=== PATIENT | female | born 1965 | race American Indian/Alaskan Native ===

== ENCOUNTER 2016-10-23 14:01 | Emergency (ER) | payer SELFPAY ==
[2016-10-23 15:42] LABS: Eosinophils % (Auto) 1.9 % (0.0-4.3); Hematocrit 41.4 % (30.3-42.9); Mean Corpuscular HGB Conc 31 % (30-34); Mean Corpuscular Hemoglobin 26 pg (28-32); Mean Corpuscular Volume 83 fl (79-97); Platelet Count 302 K/mm3 (140-440); Red Blood Count 4.98 M/mm3 (3.65-5.03); Red Cell Distribution Width 13.2 % (13.2-15.2)
[2016-10-23 15:53] LABS: B-Hydroxybutyrate 1.3 mg/dL (0.2-2.8); BUN/Creatinine Ratio 11.11; Blood Urea Nitrogen 10 mg/dL (7-17); Calcium 9.3 mg/dL (8.4-10.2); Carbon Dioxide 24 mmol/L (22-30); Glucose 369 mg/dL (65-100)
[2016-10-23 15:54] LABS: Anion Gap 21 mmol/L; Chloride 94.5 mmol/L (98-107); Sodium 135 mmol/L (137-145)
[2016-10-23] MEDS ORDERED: NACL 0.9% 1000 ML IV ONE (16:10)
[2016-10-23] MEDS ORDERED: MORPHINE IV ONE (16:16)
[2016-10-23] MEDS ORDERED: ZOFRAN IV ONE (16:16)
--- NOTE | 2016-10-23 16:17 | Emergency Department Report ---
ED Chest Pain HPI - General Chief Complaint: Hyperglycemia Stated Complaint: CHEST PAIN Source: patient Mode of arrival: Stretcher Limitations: No Limitations - History of Present Illness Initial Comments: Patient is a 51 year old female who presents to the ED for left sided chest pain of about 10/10 at around 11 45 AM today while she was at work. Patient states pain was sharp, shooting type of pain which is also radiating to the left back. Patient denies any MA or PE. Relates has a hx of hypertension and diabetes. States she is currently on lisinopril 5 mg once daily, novolog 20 units and levemir 40 units nightly along with statins. Patient denies any headaches, sob, abdominal pain, emesis or diarrhea. States pain is about 8/10 s /p asprin. MD Complaint: chest pain Onset/Timin -: hour(s) Onset: during rest Pain Location: left chest Pain Radiation: back Severity scale (0 -10): 8 Quality: aching, dull, pressure Consistency: constant Improves With: nothing Worsens With: nothing re: denies: nausea, vomting, diaphoresis, dyspnea, sense of impending doom Other Symptoms: denies: cough, fever, syncope, palpitations Treatments Prior to Arrival: aspirin - Related Data Home Medications Medication Instructions Recorded Confirmed Last Taken Insulin Lispro [HumaLOG VIAL] 0 units SQ AC 10/23/16 10/23/16 Unknown Lisinopril [Zestril] 5 mg PO QDAY 10/23/16 10/23/16 Unknown Previous Rx's Medication Instructions Recorded Last Taken Type Insulin Detemir [Levemir] 100 unit SQ QHS #1 vial 10/23/16 Unknown Rx Allergies Allergy/AdvReac Type Severity Reaction Status Date / Time No Known Allergies Allergy Unverified 06/11/16 13:03 CLAUDIA score - Claudia Score Age > 65: (0) No Aspirin use within the Past 7 Days: (0) No 3 or more CAD Risk Factors: (1) Yes 2 or more Angina events in past 24 hrs: (0) No Known CAD with more than 50% Stenosis: (0) No Elevated Cardiac Markers: (0) No ST Deviation Greater than 0.5mm: (0) No (1) CLAUDIA Score: 1 ED Review of Systems ROS: Stated complaint: CHEST PAIN Other details as noted in HPI Constitutional: denies: chills, fever Eyes: denies: eye pain, eye discharge, vision change Respiratory: denies: cough, shortness of breath, wheezing Cardiovascular: as per HPI, chest pain. denies: palpitations, orthopnea, edema , syncope Gastrointestinal: denies: abdominal pain, nausea, diarrhea Neurological: denies: headache, weakness, paresthesias Psychiatric: denies: anxiety, depression ED Past Medical Hx - Past Medical History Hx Hypertension: Yes Hx Diabetes: Yes Hx Asthma: Yes - Surgical History Hx Cholecystectomy: Yes Additional Surgical History: PDA REPAIR. X3. HERNIA REPAIR. ECTOPIC . HYSTERECTOMY - Social History Smoking Status: Never Smoker - Medications Home Medications: Home Medications Medication Instructions Recorded Confirmed Last Taken Type Insulin Detemir [Levemir] 100 unit SQ QHS #1 vial 10/23/16 Unknown Rx Insulin Lispro [HumaLOG VIAL] 0 units SQ AC 10/23/16 10/23/16 Unknown History Lisinopril [Zestril] 5 mg PO QDAY 10/23/16 10/23/16 Unknown History ED Physical Exam - General Limitations: No Limitations General appearance: alert, in no apparent distress - Head Head exam: Present: atraumatic, normocephalic - Eye Eye exam: Present: normal appearance - Respiratory Respiratory exam: Present: normal lung sounds bilaterally. Absent: respiratory distress, wheezes, rales, rhonchi, stridor - Cardiovascular Cardiovascular Exam: Present: regular rate, normal rhythm. Absent: systolic murmur, diastolic murmur, rubs, gallop - GI/Abdominal GI/Abdominal exam: Present: soft, normal bowel sounds - Neurological Exam Neurological exam: Present: alert, oriented X3 - Psychiatric Psychiatric exam: Present: normal affect, normal mood ED Course Vital Signs 10/23/16 10/23/16 10/23/16 14:49 14:58 15:00 Pulse Rate 103 H Respiratory 16 18 23 Rate Blood Pressure 126/81 O2 Sat by Pulse 100 Oximetry 10/23/16 17:29 Pulse Rate Respiratory 18 Rate Blood Pressure O2 Sat by Pulse Oximetry ED Medical Decision Making - Lab Data Result diagrams: 10/23/16 15:16 10/23/16 15:16 - EKG Data When compared to previous EKG there are: no significant change Interpretation: no acute changes, other (sinus tachy otherwise normal ekg ) - Medical Decision Making 4:23 PM Patient is resting comfortably. Blood work significant for Venous PH of 7.29. Serum glucose of 369. Awaiting lactatic acid, chest xray and troponin for now. EKG does not reveal STEMI. IV fluids and 7 units of IV regular insulin ordered at this time. 7:56 PM Patient is resting comfortably. States no more chest pain. Troponin negative x 2, LActate came back 2.5 but patient states feeling much better. Spoke with Dr. Figueroa and Dr. Fernandez who advised to change patient's insulin and she should be able to be discharged at this time. No chest pain, abdominal pain , headaches or sob at discharge. Advised follow up with electroplating worker and PCP in 2-3 days and advised to return to ED for worsening symptoms. Advised patient to keep taking Levemir 40 units at night time and add Levemir 20 units in the AM as per Dr. Fernandez. - Differential Diagnosis Hyperglycemia, uncontrolled serum glucose, chest pain, atypical chest pain Critical care attestation.: If time is entered above; I have spent that time in minutes in the direct care of this critically ill patient, excluding procedure time. ED Disposition Clinical Impression: Atypical chest pain Hyperglycemia due to type 2 diabetes mellitus Qualifiers: Diabetes mellitus joint terminal attack controller insulin use: with joint terminal attack controller use Qualified Code(s): E11.65 - Type 2 diabetes mellitus with hyperglycemia; Z79.4 - residential (current ) use of insulin Disposition: DISCHARGED TO HOME OR SELFCARE Is pt being admited?: No Does the pt Need Aspirin: No Condition: Stable Instructions: Diabetes Mellitus Type 2 in Adults (ED), Chest Pain (ED) Additional Instructions: Advised patient to add Levemir 20 units in the AM. So patient is to use Novolog 20 units in the AM, 25 units at noon and 25 units in the evening Levemir 40 units at night and 20 units in the AM 12 hours apart. Prescriptions: Insulin Detemir [Levemir] 100 unit SQ QHS #1 vial Referrals: PRIMARY CARE, [Primary Care Provider] - 3-5 Days CLINT HARRISON MD [Staff Physician] - 3-5 Days Time of Disposition: 20:01
[2016-10-23 16:38] LABS: Bacteria,Urine 1+ /HPF (Negative); Bilirubin,Urine NEG (Negative); Blood,Urine SM (Negative); Ketones,Urine NEG (Negative); Leukocyte Esterase,Urine LG (Negative); Nitrite,Urine NEG (Negative); Protein,Urine <15 mg/dL mg/dL (Negative); Urobilinogen,Urine < 2.0 mg/dL (<2.0)
[2016-10-23 17:27] LABS: Creatine Kinase 40 units/L (30-135)
[2016-10-23 17:31] LABS: Creatine Kinase MB < 1.0 ng/mL (0.0-4.0)
[2016-10-23 20:35] VITALS: BP 162/98
--- NOTE | 2016-10-24 09:57 | XRay Report ---
ROUTINE CHEST, TWO VIEWS: HISTORY: chest pain. The trachea, heart, mediastinal contour, lung stinson and bony thorax are unremarkable. IMPRESSION: Unremarkable chest x-ray.
== END 2016-10-23 20:34 | disposition home or self-care (01) ==
LOC: ED 14:01
DX: R07.89 Other chest pain (principal); E11.65 Type 2 diabetes mellitus with hyperglycemia; J45.909 Unspecified asthma, uncomplicated; I10 Essential (primary) hypertension; Z79.4 Long term (current) use of insulin
CPT/HCPCS: 36415; 71020; 80048; 81001; 82010; 82140; 82550; 82553; 82805; 82962; 84484; 85025; 93005; 93010; 96361; 96374; 96375; 99284; J2270; J2405; J7030; J1815

== ENCOUNTER 2017-02-13 21:32 | Emergency (ER) | payer SELFPAY ==
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
[2017-02-14] MEDS ORDERED: NORCO 5/325 PO ONE (00:43)
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
[2017-02-14 03:36] VITALS: BP 136/87
== END 2017-02-14 03:40 | disposition home or self-care (01) ==
LOC: ED 21:32
DX: M25.552 Pain in left hip (principal); I10 Essential (primary) hypertension; E11.9 Type 2 diabetes mellitus without complications; J45.909 Unspecified asthma, uncomplicated; Z79.4 Long term (current) use of insulin; V09.9XXA Pedestrian injured in unspecified transport accident, initial encounter; Y93.89 Activity, other specified; Y99.8 Other external cause status; Y92.480 Sidewalk as the place of occurrence of the external cause
CPT/HCPCS: 70450; 71020; 72100; 72125

== ENCOUNTER 2019-02-13 19:34 | Inpatient (IN) | payer MEDICARE, OTHER ==
--- NOTE | 2019-02-13 20:55 | Emergency Department Report ---
ED Altered Mental Status HPI - General Chief Complaint: Altered Mental Status Stated Complaint: ALTERED MENTAL STATUS Time Seen by Provider: 02/13/19 20:32 Source: patient, family, EMS Mode of arrival: Stretcher Limitations: Altered Mental Status - History of Present Illness Initial Comments: 53 yo F with hx diabetes, brain tumor, depression, presents to ED with altered mental status. Son arrived at her home and found patient unresponsive. He states he was unable to arouse her for approx 5 minutes. EMS was called, accucheck 418. Patient transported to ED. Daughter states she was concerned about pt's mental status for a few days now. States when she spoke to her over the phone yesterday and the day before, pt had repetitive questioning, which is unlike her. Also states speech sounded slurred at that time also. Pt last seen normal 3 days ago. Currently, pt complaining of headache, and also back pain which is chronic. Pt states her back hurts all of the time. Does not recall falling. Denies taking any medications. Denies any alcohol use. Past hx of drug abuse, but pt currently denies. MD Complaint: altered mental status -: days(s) (2) Severity: moderate Consistency of Symptoms: getting worse Context: diabetes Associated Symptoms: headaches. denies: chest pain, cough, fever/chills, nausea/vomiting, shortness of breath, diarrhea - Related Data Home Medications Medication Instructions Recorded Confirmed Last Taken Insulin Lispro [HumaLOG VIAL] 0 units SQ AC 10/23/16 10/23/16 Unknown Lisinopril [Zestril] 5 mg PO QDAY 10/23/16 10/23/16 Unknown Previous Rx's Medication Instructions Recorded Last Taken Type Insulin Detemir [Levemir] 100 unit SQ QHS #1 vial 10/23/16 Unknown Rx Cyclobenzaprine [Flexeril] 10 mg PO Q8H PRN #12 tablet 02/14/17 Unknown Rx Ibuprofen [Motrin] 600 mg PO Q8H PRN #30 tablet 02/14/17 Unknown Rx Allergies Allergy/AdvReac Type Severity Reaction Status Date / Time lisinopril Allergy Itching Verified 02/14/19 01:03 oxycodone Allergy Itching Verified 02/14/19 01:03 ED Review of Systems ROS: Stated complaint: ALTERED MENTAL STATUS Other details as noted in HPI Comment: All other systems reviewed and negative Constitutional: denies: chills, fever Respiratory: denies: shortness of breath Cardiovascular: denies: chest pain Gastrointestinal: denies: abdominal pain, nausea, vomiting, diarrhea Neurological: headache, confusion ED Past Medical Hx - Past Medical History Previous Medical History?: Yes Hx Hypertension: Yes Hx Diabetes: Yes Hx Asthma: Yes - Surgical History Past Surgical History?: Yes Hx Cholecystectomy: Yes Additional Surgical History: PDA REPAIR. X3. HERNIA REPAIR. ECTOPIC . HYSTERECTOMY - Social History Smoking Status: Never Smoker Substance Use Type: None - Medications Home Medications: Home Medications Medication Instructions Recorded Confirmed Last Taken Type Insulin Detemir [Levemir] 100 unit SQ QHS #1 vial 10/23/16 Unknown Rx Insulin Lispro [HumaLOG VIAL] 0 units SQ AC 10/23/16 10/23/16 Unknown History Lisinopril [Zestril] 5 mg PO QDAY 10/23/16 10/23/16 Unknown History Cyclobenzaprine [Flexeril] 10 mg PO Q8H PRN #12 tablet 02/14/17 Unknown Rx Ibuprofen [Motrin] 600 mg PO Q8H PRN #30 tablet 02/14/17 Unknown Rx ED Physical Exam - General Limitations: Altered Mental Status General appearance: lethargic - Head Head exam: Present: atraumatic, normocephalic - Eye Eye exam: Present: EOMI. Absent: PERRL, scleral icterus, conjunctival injection, periorbital swelling Pupils: Present: irregular (right lens irregular), unequal, other (left pupil > right pupil) - ENT ENT exam: Present: mucous membranes dry - Neck Neck exam: Present: normal inspection - Respiratory Respiratory exam: Present: normal lung sounds bilaterally. Absent: respiratory distress - Cardiovascular Cardiovascular Exam: Present: normal rhythm, tachycardia - GI/Abdominal GI/Abdominal exam: Present: soft, tenderness (mild diffuse tenderness). Absent: distended - Extremities Exam Extremities exam: Present: normal inspection. Absent: tenderness - Neurological Exam Neurological exam: Present: alert, altered, motor sensory deficit (drift present in BUE, drift present in right leg). Absent: oriented X3 (states it is the year 2018) - Psychiatric Psychiatric exam: Present: normal affect, normal mood - Skin Skin exam: Present: warm, dry, intact, normal color - Assessment Assessment Interval: Baseline - Level of Consciousness 1a. Level of Consciousness: arousable/minor stimuli - LOC Questions 1b. LOC Questions: answers 1 question correctly - LOC Command 1c. LOC Commands: performs tasks correctly - Best Gaze 2. Best Gaze: partial gaze palsy - Visual 3. Visual: no visual loss - Facial Palsy 4. Facial Palsy: normal symmetrical movement - Motor Arm 5a. Motor Arm Left: drift 5b. Motor Arm Right: drift - Motor Leg 6a. Motor Leg Left: drift 6b. Motor Leg Right: no drift - Limb Ataxia 7. Limb Ataxia: absent - Sensory 8. Sensory: normal - Best Language 9. Best Language: no aphasia - Dysarthria 10. Dysarthria: normal - Extinction and Inattention 11. Extinction/Inattention: no abnormality - Scoring Total Score: 6 Stroke Severity: Moderate Stroke ED Course Vital Signs 02/13/19 02/13/19 02/13/19 20:00 20:09 20:16 Temperature 98.1 F Pulse Rate 100 H 104 H 106 H Respiratory 9 L 12 17 Rate Blood Pressure 165/100 165/100 143/96 Blood Pressure 165/100 [Left] O2 Sat by Pulse 97 99 98 Oximetry 02/13/19 02/13/19 02/13/19 20:30 20:46 21:01 Temperature Pulse Rate 102 H 107 H 103 H Respiratory 12 16 10 L Rate Blood Pressure 165/100 150/81 123/77 Blood Pressure [Left] O2 Sat by Pulse 96 99 95 Oximetry 02/13/19 02/13/19 02/13/19 21:15 21:30 21:45 Temperature Pulse Rate 97 H 97 H 94 H Respiratory 9 L 10 L 9 L Rate Blood Pressure 104/69 121/77 103/67 Blood Pressure [Left] O2 Sat by Pulse 94 93 92 Oximetry 02/13/19 02/13/19 02/13/19 22:00 22:30 22:45 Temperature Pulse Rate 91 H 89 88 Respiratory 8 L 8 L 7 L Rate Blood Pressure 104/67 104/69 104/67 Blood Pressure [Left] O2 Sat by Pulse 96 98 98 Oximetry 02/13/19 02/13/19 02/14/19 23:00 23:30 00:00 Temperature Pulse Rate 96 H 94 H 90 Respiratory 14 8 L 8 L Rate Blood Pressure 97/74 122/77 108/64 Blood Pressure [Left] O2 Sat by Pulse 99 96 94 Oximetry 02/14/19 00:30 Temperature Pulse Rate 91 H Respiratory 14 Rate Blood Pressure 146/97 Blood Pressure [Left] O2 Sat by Pulse 98 Oximetry - Reevaluation(s) Reevaluation #1: 02/13/19 21:40 Narcan 0.4 mg given. No change in mental status. Reevaluation #2: 02/13/19 22:00 Narcan 2 mg given. No change in mental status. - Lab Data Result diagrams: 02/14/19 04:11 02/13/19 21:04 Lab Results 02/13/19 02/13/19 02/13/19 Range/Units 21:04 21:04 21:04 WBC 8.0 (4.5-11.0) K/mm3 RBC 4.46 (3.65-5.03) M/mm3 Hgb 11.7 (10.1-14.3) gm/dl Hct 35.7 (30.3-42.9) % MCV 80 (79-97) fl MCH 26 L (28-32) pg MCHC 33 (30-34) % RDW 14.0 (13.2-15.2) % Plt Count 274 (140-440) K/mm3 Lymph % (Auto) 26.4 (13.4-35.0) % [place] % (Auto) 9.7 H (0.0-7.3) % Eos % (Auto) 6.4 H (0.0-4.3) % Baso % (Auto) 0.6 (0.0-1.8) % Lymph # 2.1 (1.2-5.4) K/mm3 [place] # 0.8 (0.0-0.8) K/mm3 Eos # 0.5 H (0.0-0.4) K/mm3 Baso # 0.0 (0.0-0.1) K/mm3 Seg Neutrophils % 56.9 (40.0-70.0) % Seg Neutrophils # 4.5 (1.8-7.7) K/mm3 PT 12.4 (12.2-14.9) Sec. INR 0.95 (0.87-1.13) APTT 32.0 (24.2-36.6) Sec. POC ABG pH (7.35-7.45) POC ABG pCO2 (35-45) POC ABG pO2 (80-105) POC ABG HCO3 (22-26 mml/L) POC ABG Total CO2 (23-27mmol/L) POC ABG O2 Sat POC ABG Base Excess ((-2) - (+3)mmol/L) FiO2 % Sodium 137 (137-145) mmol/L Potassium 4.4 (3.6-5.0) mmol/L Chloride 100.2 (98-107) mmol/L Carbon Dioxide 23 (22-30) mmol/L Anion Gap 18 mmol/L BUN 24 H (7-17) mg/dL Creatinine 1.1 (0.7-1.2) mg/dL Estimated GFR > 60 ml/min BUN/Creatinine Ratio 22 % Glucose 335 H (65-100) mg/dL Calcium 9.0 (8.4-10.2) mg/dL Total Bilirubin (0.1-1.2) mg/dL Direct Bilirubin (0-0.2) mg/dL Indirect Bilirubin mg/dL AST (5-40) units/L ALT (7-56) units/L Alkaline Phosphatase (35-129) units/L Ammonia (25-60) umol/L Troponin T (0.00-0.029) ng/mL Total Protein (6.3-8.2) g/dL Albumin (3.9-5) g/dL Albumin/Globulin Ratio % Lipase (13-60) units/L Urine Color (Yellow) Urine Turbidity (Clear) Urine pH (5.0-7.0) Ur Specific [place] (1.003-1.030) Urine Protein (Negative) mg/dL Urine Glucose (UA) (Negative) mg/dL Urine Ketones (Negative) mg/dL Urine Blood (Negative) Urine Nitrite (Negative) Urine Bilirubin (Negative) Urine Urobilinogen (<2.0) mg/dL Ur Leukocyte Esterase (Negative) Urine WBC (Auto) (0.0-6.0) /HPF Urine RBC (Auto) (0.0-6.0) /HPF U Epithel Cells (Auto) (0-13.0) /HPF Urine Mucus /HPF Salicylates (2.8-20.0) mg/dL Urine Opiates Screen Urine Methadone Screen Acetaminophen (10.0-30.0) ug/mL Ur Barbiturates Screen Ur Phencyclidine Scrn Ur Amphetamines Screen U Benzodiazepines Scrn Urine Cocaine Screen U Marijuana (THC) Screen Drugs of Abuse Note Plasma/Serum Alcohol (0-0.07) % 02/13/19 02/13/19 02/13/19 Range/Units 21:04 21:04 21:04 WBC (4.5-11.0) K/mm3 RBC (3.65-5.03) M/mm3 Hgb (10.1-14.3) gm/dl Hct (30.3-42.9) % MCV (79-97) fl MCH (28-32) pg MCHC (30-34) % RDW (13.2-15.2) % Plt Count (140-440) K/mm3 Lymph % (Auto) (13.4-35.0) % [place] % (Auto) (0.0-7.3) % Eos % (Auto) (0.0-4.3) % Baso % (Auto) (0.0-1.8) % Lymph # (1.2-5.4) K/mm3 [place] # (0.0-0.8) K/mm3 Eos # (0.0-0.4) K/mm3 Baso # (0.0-0.1) K/mm3 Seg Neutrophils % (40.0-70.0) % Seg Neutrophils # (1.8-7.7) K/mm3 PT (12.2-14.9) Sec. INR (0.87-1.13) APTT (24.2-36.6) Sec. POC ABG pH (7.35-7.45) POC ABG pCO2 (35-45) POC ABG pO2 (80-105) POC ABG HCO3 (22-26 mml/L) POC ABG Total CO2 (23-27mmol/L) POC ABG O2 Sat POC ABG Base Excess ((-2) - (+3)mmol/L) FiO2 % Sodium (137-145) mmol/L Potassium (3.6-5.0) mmol/L Chloride (98-107) mmol/L Carbon Dioxide (22-30) mmol/L Anion Gap mmol/L BUN (7-17) mg/dL Creatinine (0.7-1.2) mg/dL Estimated GFR ml/min BUN/Creatinine Ratio % Glucose (65-100) mg/dL Calcium (8.4-10.2) mg/dL Total Bilirubin < 0.20 (0.1-1.2) mg/dL Direct Bilirubin < 0.2 (0-0.2) mg/dL Indirect Bilirubin 0.0 mg/dL AST 12 (5-40) units/L ALT 11 (7-56) units/L Alkaline Phosphatase 128 (35-129) units/L Ammonia (25-60) umol/L Troponin T < 0.010 (0.00-0.029) ng/mL Total Protein 7.8 (6.3-8.2) g/dL Albumin 3.6 L (3.9-5) g/dL Albumin/Globulin Ratio 0.9 % Lipase 16 (13-60) units/L Urine Color (Yellow) Urine Turbidity (Clear) Urine pH (5.0-7.0) Ur Specific [place] (1.003-1.030) Urine Protein (Negative) mg/dL Urine Glucose (UA) (Negative) mg/dL Urine Ketones (Negative) mg/dL Urine Blood (Negative) Urine Nitrite (Negative) Urine Bilirubin (Negative) Urine Urobilinogen (<2.0) mg/dL Ur Leukocyte Esterase (Negative) Urine WBC (Auto) (0.0-6.0) /HPF Urine RBC (Auto) (0.0-6.0) /HPF U Epithel Cells (Auto) (0-13.0) /HPF Urine Mucus /HPF Salicylates < 0.3 L (2.8-20.0) mg/dL Urine Opiates Screen Urine Methadone Screen Acetaminophen < 5.0 L (10.0-30.0) ug/mL Ur Barbiturates Screen Ur Phencyclidine Scrn Ur Amphetamines Screen U Benzodiazepines Scrn Urine Cocaine Screen U Marijuana (THC) Screen Drugs of Abuse Note Plasma/Serum Alcohol (0-0.07) % 02/13/19 02/13/19 02/13/19 Range/Units 21:04 21:30 21:30 WBC (4.5-11.0) K/mm3 RBC (3.65-5.03) M/mm3 Hgb (10.1-14.3) gm/dl Hct (30.3-42.9) % MCV (79-97) fl MCH (28-32) pg MCHC (30-34) % RDW (13.2-15.2) % Plt Count (140-440) K/mm3 Lymph % (Auto) (13.4-35.0) % [place] % (Auto) (0.0-7.3) % Eos % (Auto) (0.0-4.3) % Baso % (Auto) (0.0-1.8) % Lymph # (1.2-5.4) K/mm3 [place] # (0.0-0.8) K/mm3 Eos # (0.0-0.4) K/mm3 Baso # (0.0-0.1) K/mm3 Seg Neutrophils % (40.0-70.0) % Seg Neutrophils # (1.8-7.7) K/mm3 PT (12.2-14.9) Sec. INR (0.87-1.13) APTT (24.2-36.6) Sec. POC ABG pH (7.35-7.45) POC ABG pCO2 (35-45) POC ABG pO2 (80-105) POC ABG HCO3 (22-26 mml/L) POC ABG Total CO2 (23-27mmol/L) POC ABG O2 Sat POC ABG Base Excess ((-2) - (+3)mmol/L) FiO2 % Sodium (137-145) mmol/L Potassium (3.6-5.0) mmol/L Chloride (98-107) mmol/L Carbon Dioxide (22-30) mmol/L Anion Gap mmol/L BUN (7-17) mg/dL Creatinine (0.7-1.2) mg/dL Estimated GFR ml/min BUN/Creatinine Ratio % Glucose (65-100) mg/dL Calcium (8.4-10.2) mg/dL Total Bilirubin (0.1-1.2) mg/dL Direct Bilirubin (0-0.2) mg/dL Indirect Bilirubin mg/dL AST (5-40) units/L ALT (7-56) units/L Alkaline Phosphatase (35-129) units/L Ammonia (25-60) umol/L Troponin T (0.00-0.029) ng/mL Total Protein (6.3-8.2) g/dL Albumin (3.9-5) g/dL Albumin/Globulin Ratio % Lipase (13-60) units/L Urine Color Yellow (Yellow) Urine Turbidity Clear (Clear) Urine pH 5.0 (5.0-7.0) Ur Specific [place] 1.012 (1.003-1.030) Urine Protein <15 mg/dl (Negative) mg/dL Urine Glucose (UA) >=500 (Negative) mg/dL Urine Ketones Neg (Negative) mg/dL Urine Blood Neg (Negative) Urine Nitrite Neg (Negative) Urine Bilirubin Neg (Negative) Urine Urobilinogen < 2.0 (<2.0) mg/dL Ur Leukocyte Esterase Neg (Negative) Urine WBC (Auto) < 1.0 (0.0-6.0) /HPF Urine RBC (Auto) < 1.0 (0.0-6.0) /HPF U Epithel Cells (Auto) 1.0 (0-13.0) /HPF Urine Mucus Few /HPF Salicylates (2.8-20.0) mg/dL Urine Opiates Screen Presumptive negative Urine Methadone Screen Presumptive negative Acetaminophen (10.0-30.0) ug/mL Ur Barbiturates Screen Presumptive negative Ur Phencyclidine Scrn Presumptive negative Ur Amphetamines Screen Presumptive negative U Benzodiazepines Scrn Presumptive negative Urine Cocaine Screen Presumptive negative U Marijuana (THC) Screen Presumptive negative Drugs of Abuse Note Disclamer Plasma/Serum Alcohol < 0.01 (0-0.07) % 02/13/19 02/13/19 Range/Units 23:16 23:16 WBC (4.5-11.0) K/mm3 RBC (3.65-5.03) M/mm3 Hgb (10.1-14.3) gm/dl Hct (30.3-42.9) % MCV (79-97) fl MCH (28-32) pg MCHC (30-34) % RDW (13.2-15.2) % Plt Count (140-440) K/mm3 Lymph % (Auto) (13.4-35.0) % [place] % (Auto) (0.0-7.3) % Eos % (Auto) (0.0-4.3) % Baso % (Auto) (0.0-1.8) % Lymph # (1.2-5.4) K/mm3 [place] # (0.0-0.8) K/mm3 Eos # (0.0-0.4) K/mm3 Baso # (0.0-0.1) K/mm3 Seg Neutrophils % (40.0-70.0) % Seg Neutrophils # (1.8-7.7) K/mm3 PT (12.2-14.9) Sec. INR (0.87-1.13) APTT (24.2-36.6) Sec. POC ABG pH 7.350 (7.35-7.45) POC ABG pCO2 48.8 H (35-45) POC ABG pO2 84 (80-105) POC ABG HCO3 26.9 (22-26 mml/L) POC ABG Total CO2 28 (23-27mmol/L) POC ABG O2 Sat 96 POC ABG Base Excess 1 ((-2) - (+3)mmol/L) FiO2 21 % Sodium (137-145) mmol/L Potassium (3.6-5.0) mmol/L Chloride (98-107) mmol/L Carbon Dioxide (22-30) mmol/L Anion Gap mmol/L BUN (7-17) mg/dL Creatinine (0.7-1.2) mg/dL Estimated GFR ml/min BUN/Creatinine Ratio % Glucose (65-100) mg/dL Calcium (8.4-10.2) mg/dL Total Bilirubin (0.1-1.2) mg/dL Direct Bilirubin (0-0.2) mg/dL Indirect Bilirubin mg/dL AST (5-40) units/L ALT (7-56) units/L Alkaline Phosphatase (35-129) units/L Ammonia 36.0 (25-60) umol/L Troponin T (0.00-0.029) ng/mL Total Protein (6.3-8.2) g/dL Albumin (3.9-5) g/dL Albumin/Globulin Ratio % Lipase (13-60) units/L Urine Color (Yellow) Urine Turbidity (Clear) Urine pH (5.0-7.0) Ur Specific [place] (1.003-1.030) Urine Protein (Negative) mg/dL Urine Glucose (UA) (Negative) mg/dL Urine Ketones (Negative) mg/dL Urine Blood (Negative) Urine Nitrite (Negative) Urine Bilirubin (Negative) Urine Urobilinogen (<2.0) mg/dL Ur Leukocyte Esterase (Negative) Urine WBC (Auto) (0.0-6.0) /HPF Urine RBC (Auto) (0.0-6.0) /HPF U Epithel Cells (Auto) (0-13.0) /HPF Urine Mucus /HPF Salicylates (2.8-20.0) mg/dL Urine Opiates Screen Urine Methadone Screen Acetaminophen (10.0-30.0) ug/mL Ur Barbiturates Screen Ur Phencyclidine Scrn Ur Amphetamines Screen U Benzodiazepines Scrn Urine Cocaine Screen U Marijuana (THC) Screen Drugs of Abuse Note Plasma/Serum Alcohol (0-0.07) % - EKG Data -: EKG Interpreted by Me EKG shows normal: sinus rhythm, axis, intervals, QRS complexes, ST-T waves Interpretation: no acute changes - Radiology Data Radiology results: report reviewed, image reviewed - Medical Decision Making 53-year-old female who is encephalopathic. No reason for encephalopathy found in workup. CT head is negative. Labs are unremarkable including normal CO2 on ABG, ammonia level, WBCs. Patient has elevated glucose into the 300s, however no sign of acidosis or DKA. Patient was given Narcan initially upon arrival for possible opiate does, however no change with Narcan was administered. Drug screen is negative, EtOH level is negative. Patient lethargic, however will awaken to painful stimuli and is somewhat conversational although there is rep etitive questioning, and at times patient's speech is not clear. CVA is still possible, however no obvious acute infarct seen on CT scan. She will require MRI upon admission. Patient is outside the window for TPA as her last known well time was 3 days ago. Will admit to hospitalist, Dr Mcclain, for further management. - Differential Diagnosis intentional overdose, accidental overdose, CVA, intoxication, CO2 narcosis Critical care attestation.: If time is entered above; I have spent that time in minutes in the direct care of this critically ill patient, excluding procedure time. ED Disposition Clinical Impression: Encephalopathy, Hyperglycemia Disposition: OP ADMIT IP TO THIS HOSP Is pt being admited?: Yes Condition: Stable
[2019-02-13 21:20] LABS: Basophils % (Auto) 0.6 % (0.0-1.8); Eosinophils # (Auto) 0.5 K/mm3 (0.0-0.4); Eosinophils % (Auto) 6.4 % (0.0-4.3); Hematocrit 35.7 % (30.3-42.9); Hemoglobin 11.7 gm/dl (10.1-14.3); Lymphocytes # (Auto) 2.1 K/mm3 (1.2-5.4); Lymphocytes % (Auto) 26.4 % (13.4-35.0); Mean Corpuscular HGB Conc 33 % (30-34); Mean Corpuscular Volume 80 fl (79-97); Monocytes # (Auto) 0.8 K/mm3 (0.0-0.8); Monocytes % (Auto) 9.7 % (0.0-7.3); Platelet Count 274 K/mm3 (140-440); Red Blood Count 4.46 M/mm3 (3.65-5.03)
[2019-02-13 21:31] LABS: BUN/Creatinine Ratio 22; Blood Urea Nitrogen 24 mg/dL (7-17); Hemolysis Index 14; INR 0.95 (0.87-1.13)
[2019-02-13] MEDS ORDERED: NARCAN 0.4 MG/1 ML IV ONE (21:31)
[2019-02-13] MEDS ORDERED: NARCAN 0.4 MG/1 ML ONE (21:33)
[2019-02-13 21:34] LABS: Alanine Aminotransferase 11 units/L (7-56); Albumin 3.6 g/dL (3.9-5)
[2019-02-13 21:38] LABS: Bilirubin,Direct < 0.2 mg/dL (0-0.2)
--- NOTE | 2019-02-13 21:39 | XRay Report ---
PROCEDURE: XR CHEST 1V AP TECHNIQUE: Chest radiograph single view. HISTORY: AMS COMPARISONS: CXR 02/14/2017 . FINDINGS: Heart: Normal. Mediastinum/Vessels: Normal. Lungs/Pleural space: Normal. Bony thorax: No acute osseous abnormality. Life support devices: None. IMPRESSION: No acute cardiopulmonary abnormality. No change This document is electronically signed by Ysabel Barrett MD., February 13 2019 09:37:58 PM ET
--- NOTE | 2019-02-13 21:48 | Cat Scan Report ---
PROCEDURE: CT HEAD/BRAIN WO CON TECHNIQUE: Computerized tomography of the head was performed without contrast material. CT DOSE LENGTH PRODUCT: 920.5 mGycm HISTORY: ams, unequal pupils COMPARISONS: None . FINDINGS: Unenhanced CT of the brain was performed and compared to the prior examination of February 14, 2017. These images demonstrate no acute intracranial hemorrhage, extra-axial fluid collection, midline shif t or mass effect. The ventricles and basal cisterns are not effaced. No acute infarct is seen. MRI may be considered if patient has persistent symptomatology. The mastoid air cells and middle ears appear clear. There is no evidence of acute sinusitis. There is a normal left lens. The right lens is not identified. The patient may be status post right i ntraocular lens replacement and correlation with ophthalmologic history is advised. IMPRESSION: No acute intracranial hemorrhage All CT scans at this location are performed using dose modulation techniques as appropriate to a perf ormed exam including the following: automated exposure control, adjustment of the mA and/or kV accord ing to patient size (this includes techniques or standardized protocols for targeted exams where dose is matched to indication/reason for exam, i.e.extremities or head; use of imaging [id number] This document is electronically signed by Salvador Dee MD., February 13 2019 09:46:34 PM ET
[2019-02-13] MEDS ORDERED: NARCAN 2 MG/2 ML ONE (21:59)
[2019-02-13] MEDS ORDERED: NARCAN 2 MG/2 ML IV ONE (22:00)
[2019-02-13 22:15] LABS: Bilirubin,Urine NEG (Negative); Blood,Urine NEG (Negative); Color,Urine Yellow (Yellow); Mucus,Urine FEW /HPF; Protein,Urine <15 mg/dL mg/dL (Negative); RBC,Urine < 1.0 /HPF (0.0-6.0); Urobilinogen,Urine < 2.0 mg/dL (<2.0); WBC,Urine < 1.0 /HPF (0.0-6.0)
[2019-02-13 22:36] LABS: Amphetamine Screen,Urine PRESUMPTIVE NEGATIVE; Benzodiazepines Screen,Urine PRESUMPTIVE NEGATIVE; Cannabinoid Screen,Urine PRESUMPTIVE NEGATIVE; Cocaine Screen,Urine PRESUMPTIVE NEGATIVE; Methadone Screen,Urine PRESUMPTIVE NEGATIVE; Opiate Screen,Urine PRESUMPTIVE NEGATIVE
[2019-02-13] MEDS ORDERED: NACL 0.9% 1000 ML 1,000 ML IV ONE (22:59)
[2019-02-14] MEDS ORDERED: D50W (25GM) Syringe IV PRN (00:46)
[2019-02-14] MEDS ORDERED: SODIUM CHLORIDE FLUSH SYRINGE 10 ML IV PRN (00:46)
[2019-02-14] MEDS ORDERED: SODIUM CHLORIDE FLUSH SYRINGE 10 ML INJ PRN (00:57)
--- NOTE | 2019-02-14 01:10 | History and Physical Report ---
History of Present Illness Date of examination: 02/14/19 History of present illness: 53-year-old lady with a history of hypertension, diabetes complictated by Neuropathy comes emergency room for evaluation of altered mental status. Patient was given Narcan in the emergency room with no improvement in her mental status. She is lethargic, answers some questions. They she's in the hospital because her family could not wake her up, she is not sure if she took any extra Lyrica or nortriptyline. Emergency room physician stated that the daughter stated that she had slurred speech 2 days prior to this. Review of systems unobtainable PAST MEDICAL HISTORY: hypertension, diabetes complictated by Neuropathy PAST SURGICAL HISTORY: Unknown SOCIAL HISTORY: Denies alcohol, drugs, tobacco FAMILY HISTORY: Hypertension Medications and Allergies Allergies Allergy/AdvReac Type Severity Reaction Status Date / Time lisinopril Allergy Itching Verified 02/14/19 01:03 oxycodone Allergy Itching Verified 02/14/19 01:03 Home Medications Medication Instructions Recorded Confirmed Last Taken Type Insulin Lispro [HumaLOG VIAL] 0 units SQ AC 10/23/16 02/14/19 Unknown History Cyclobenzaprine [Flexeril 10 MG 10 mg PO Q8H PRN #12 tablet 02/14/17 02/14/19 Unknown Rx TAB] Ibuprofen [Motrin 600 MG tab] 600 mg PO Q8H PRN #30 tablet 02/14/17 02/14/19 Unknown Rx Losartan 25 mg PO QDAY 02/14/19 02/14/19 Unknown History Rosuvastatin (Nf) 40 mg PO QDAY 02/14/19 02/14/19 Unknown History Xarelto 20 mg PO QAC 02/14/19 02/14/19 Unknown History metFORMIN 1,000 mg PO QAC 02/14/19 02/14/19 Unknown History Insulin Detemir [Levemir VIAL] 10 unit SQ QHS #1 vial 02/17/19 02/14/19 Unknown Rx Active Meds: Active Medications Acetaminophen (Tylenol) 650 mg PO Q4H PRN PRN Reason: Pain MILD(1-3)/Fever >100.5/[place] Aspirin (Aspirin) 325 mg PO QDAY [facility]AI Dextrose (D50w (25gm) Syringe) 50 ml IV PRN PRN PRN Reason: Hypoglycemia Enoxaparin Sodium (Lovenox) 40 mg SUB-Q QDAY [facility] Insulin Human Lispro (Humalog) 0 unit SUB-Q Q6HR [facility]; Protocol Ondansetron HCl (Zofran) 4 mg IV Q8H PRN PRN Reason: Nausea And Vomiting Pravastatin Sodium (Pravachol) 20 mg PO QHS [facility]AI Sodium Chloride (Sodium Chloride Flush Syringe 10 Ml) 10 ml IV BID [facility]AI Sodium Chloride (Sodium Chloride Flush Syringe 10 Ml) 10 ml IV PRN PRN PRN Reason: LINE FLUSH Sodium Chloride (Sodium Chloride Flush Syringe 10 Ml) 10 ml INJ PRN PRN PRN Reason: LINE FLUSH Exam - Physical Exam Narrative exam: General Apperance: The patient lying in bed, breathing comfortable HEENT: Normocephalic, atraumatic. Pupils equally round and reactive to light, EOMI, no sclericterus or JVD or thyromegaly or nodule. , no carotid bruit, mucous membranes moist, no exudate or erythema Heart: S1-S2, regular is rhythm Lungs: Clear to auscultation bilaterally, breathing comfortable Abdomen: Positive bowel sounds, soft, nontender, nondistended, no organomegaly Extremities: No edema cyanosis clubbing Skin: no rash, nodule, warm and dry Neuro: lethargic but arousable, speech is fluent, all 4 extremities, rest of the neuro exam is difficult to assess - Constitutional Vitals: Temp Pulse Resp BP Pulse Ox 98.1 F 88 7 L 104/67 98 02/13/19 20:09 02/13/19 22:45 02/13/19 22:45 02/13/19 22:45 02/13/19 22:45 Results - Labs CBC & Chem 7: 02/14/19 04:11 02/16/19 04:26 Labs: Abnormal lab results 02/13/19 02/13/19 02/13/19 Range/Units 21:04 21:04 21:04 MCH 26 L (28-32) pg [place] % (Auto) 9.7 H (0.0-7.3) % Eos % (Auto) 6.4 H (0.0-4.3) % Eos # 0.5 H (0.0-0.4) K/mm3 POC ABG pCO2 (35-45) BUN 24 H (7-17) mg/dL Glucose 335 H (65-100) mg/dL Albumin 3.6 L (3.9-5) g/dL Salicylates (2.8-20.0) mg/dL Acetaminophen (10.0-30.0) ug/mL 02/13/19 02/13/19 02/13/19 Range/Units 21:04 21:04 23:16 MCH (28-32) pg [place] % (Auto) (0.0-7.3) % Eos % (Auto) (0.0-4.3) % Eos # (0.0-0.4) K/mm3 POC ABG pCO2 48.8 H (35-45) BUN (7-17) mg/dL Glucose (65-100) mg/dL Albumin (3.9-5) g/dL Salicylates < 0.3 L (2.8-20.0) mg/dL Acetaminophen < 5.0 L (10.0-30.0) ug/mL - Imaging and Cardiology Chest x-ray: report reviewed CT Scan - head: report reviewed Assessment and Plan Assessment Acute encephalopathy, probably drug-induced, r/o CVA Hypertension Diabetes complicated by neuropathy Plan Admit to medicine Obtain MRI of the head and neck, echo Do neuro checks, swallow screen Start aspirin, statin Utility Technician neurology, PT, OT IV hydralazine as needed for blood pressure control Check fingersticks and initiate insulin sliding scale DVT prophylaxis
[2019-02-14] MEDS: HumaLOG SUB-Q SCH ×2 (01:15→05:44)
[2019-02-14] MEDS ORDERED: HumaLOG SUB-Q ONE (01:15)
[2019-02-14] MEDS: NACL 0.9% 1000 ML 1,000 ML IV SCH ×2 (02:20→09:24)
[2019-02-14 05:13] LABS: Basophils % (Auto) 0.5 % (0.0-1.8); Eosinophils # (Auto) 0.4 K/mm3 (0.0-0.4); Hematocrit 32.6 % (30.3-42.9); Hemoglobin 10.6 gm/dl (10.1-14.3); Lymphocytes % (Auto) 40.7 % (13.4-35.0); Mean Corpuscular HGB Conc 32 % (30-34); Mean Corpuscular Volume 81 fl (79-97); Monocytes # (Auto) 0.9 K/mm3 (0.0-0.8); Monocytes % (Auto) 11.9 % (0.0-7.3); Platelet Count 256 K/mm3 (140-440); Red Blood Count 4.01 M/mm3 (3.65-5.03); Red Cell Distribution Width 14.1 % (13.2-15.2)
[2019-02-14 05:28] LABS: BUN/Creatinine Ratio 19; Blood Urea Nitrogen 19 mg/dL (7-17); Calcium 8.3 mg/dL (8.4-10.2); Hemolysis Index 32
[2019-02-14] MEDS: TYLENOL PO PRN ×3 (09:23→21:46)
[2019-02-14] MEDS: ASPIRIN PO SCH (09:24)
[2019-02-14] MEDS: LOVENOX SUB-Q SCH (09:24)
[2019-02-14] MEDS: SODIUM CHLORIDE FLUSH SYRINGE 10 ML IV SCH ×2 (09:24→21:47)
--- NOTE | 2019-02-14 11:34 | Progress Note ---
Assessment and Plan Assessment and plan: --Acute encephalopathy, probably drug-induced, r/o CVA Neuro workup is in progress, Nerology consulted --Hypertension; moderate control Continue current antihypertensives and when necessary medications --Diabetes complicated by neuropathy Accu-Chek sliding scale coverage and ADA diet and insulin as needed --Obesity; BMI 36.5 Advised adduction when medically stable --DVT prophylaxis; Lovenox -- Physical therapy and occupational therapy DC planning to case management Monitor closely and adjust management as needed History Interval history: Patient seen and examined medical records reviewed Patient is confused, noncommunicative Admitted with encephalopathy and unresponsiveness Neuro workup is in progress Vital signs noted Hospitalist Physical - Constitutional Vitals: Temp Pulse Resp BP Pulse Ox 97.3 F L 89 14 165/106 99 02/14/19 07:35 02/14/19 07:35 02/14/19 07:35 02/14/19 07:35 02/14/19 09:44 General appearance: Present: mild distress, other (confused and noncommunicative) - EENT Eyes: Present: PERRL - Neck Neck: Present: supple, normal ROM - Respiratory Respiratory effort: normal Respiratory: bilateral: diminished, negative: rales, rhonchi, wheezing - Cardiovascular Rhythm: regular Heart Sounds: Present: S1 & S2 - Extremities Extremities: no ischemia, No edema - Abdominal General gastrointestinal: soft, non-tender, non-distended, normal bowel sounds - Integumentary Integumentary: Present: clear, warm - Psychiatric Psychiatric: other (non communicative and confused) - Neurologic Neurologic: other ( noncommunicative) Results - Labs CBC & Chem 7: 02/14/19 04:11 02/14/19 04:11 Labs: Laboratory Last Values WBC 7.3 K/mm3 (4.5-11.0) 02/14/19 04:11 RBC 4.01 M/mm3 (3.65-5.03) 02/14/19 04:11 Hgb 10.6 gm/dl (10.1-14.3) 02/14/19 04:11 Hct 32.6 % (30.3-42.9) 02/14/19 04:11 MCV 81 fl (79-97) 02/14/19 04:11 MCH 26 pg (28-32) L 02/14/19 04:11 MCHC 32 % (30-34) 02/14/19 04:11 RDW 14.1 % (13.2-15.2) 02/14/19 04:11 Plt Count 256 K/mm3 (140-440) 02/14/19 04:11 Lymph % (Auto) 40.7 % (13.4-35.0) H 02/14/19 04:11 [place] % (Auto) 11.9 % (0.0-7.3) H 02/14/19 04:11 Eos % (Auto) 6.0 % (0.0-4.3) H 02/14/19 04:11 Baso % (Auto) 0.5 % (0.0-1.8) 02/14/19 04:11 Lymph # 3.0 K/mm3 (1.2-5.4) 02/14/19 04:11 [place] # 0.9 K/mm3 (0.0-0.8) H 02/14/19 04:11 Eos # 0.4 K/mm3 (0.0-0.4) 02/14/19 04:11 Baso # 0.0 K/mm3 (0.0-0.1) 02/14/19 04:11 Seg Neutrophils % 40.9 % (40.0-70.0) 02/14/19 04:11 Seg Neutrophils # 3.0 K/mm3 (1.8-7.7) 02/14/19 04:11 PT 12.4 Sec. (12.2-14.9) 02/13/19 21:04 INR 0.95 (0.87-1.13) 02/13/19 21:04 APTT 32.0 Sec. (24.2-36.6) 02/13/19 21:04 POC ABG pH 7.350 (7.35-7.45) 02/13/19 23:16 POC ABG pCO2 48.8 (35-45) H 02/13/19 23:16 POC ABG pO2 84 (80-105) 02/13/19 23:16 POC ABG HCO3 26.9 (22-26 mml/L) 02/13/19 23:16 POC ABG Total CO2 28 (23-27mmol/L) 02/13/19 23:16 POC ABG O2 Sat 96 02/13/19 23:16 POC ABG Base Excess 1 ((-2) - (+3)mmol/L) 02/13/19 23:16 21 % 02/13/19 23:16 Sodium 142 mmol/L (137-145) 02/14/19 04:11 Potassium 3.9 mmol/L (3.6-5.0) 02/14/19 04:11 Chloride 106.2 mmol/L (98-107) 02/14/19 04:11 Carbon Dioxide 24 mmol/L (22-30) 02/14/19 04:11 16 mmol/L 02/14/19 04:11 BUN 19 mg/dL (7-17) H 02/14/19 04:11 1.0 mg/dL (0.7-1.2) 02/14/19 04:11 Estimated GFR > 60 ml/min 02/14/19 04:11 19 % 02/14/19 04:11 Glucose 245 mg/dL (65-100) H 02/14/19 04:11 POC Glucose 267 (70-105) H 02/14/19 05:30 Calcium 8.3 mg/dL (8.4-10.2) L 02/14/19 04:11 < 0.20 mg/dL (0.1-1.2) 02/13/19 21:04 < 0.2 mg/dL (0-0.2) 02/13/19 21:04 0.0 mg/dL 02/13/19 21:04 AST 12 units/L (5-40) 02/13/19 21:04 ALT 11 units/L (7-56) 02/13/19 21:04 128 units/L (35-129) 02/13/19 21:04 36.0 umol/L (25-60) 02/13/19 23:16 < 0.010 ng/mL (0.00-0.029) 02/13/19 21:04 7.8 g/dL (6.3-8.2) 02/13/19 21:04 3.6 g/dL (3.9-5) L 02/13/19 21:04 0.9 % 02/13/19 21:04 16 units/L (13-60) 02/13/19 21:04 Yellow (Yellow) 02/13/19 21:30 Clear (Clear) 02/13/19 21:30 5.0 (5.0-7.0) 02/13/19 21:30 Ur Specific [place] 1.012 (1.003-1.030) 02/13/19 21:30 <15 mg/dl mg/dL (Negative) 02/13/19 21:30 >=500 mg/dL (Negative) 02/13/19 21:30 Neg mg/dL (Negative) 02/13/19 21:30 Neg (Negative) 02/13/19 21:30 Neg (Negative) 02/13/19 21:30 Neg (Negative) 02/13/19 21:30 < 2.0 mg/dL (<2.0) 02/13/19 21:30 Ur Leukocyte Esterase Neg (Negative) 02/13/19 21:30 < 1.0 /HPF (0.0-6.0) 02/13/19 21:30 < 1.0 /HPF (0.0-6.0) 02/13/19 21:30 U Epithel Cells (Auto) 1.0 /HPF (0-13.0) 02/13/19 21:30 Few /HPF 02/13/19 21:30 Salicylates < 0.3 mg/dL (2.8-20.0) L 02/13/19 21:04 Presumptive negative 02/13/19 21:30 Presumptive negative 02/13/19 21:30 Acetaminophen < 5.0 ug/mL (10.0-30.0) L 02/13/19 21:04 Ur Barbiturates Screen Presumptive negative 02/13/19 21:30 Ur Phencyclidine Scrn Presumptive negative 02/13/19 21:30 Ur Amphetamines Screen Presumptive negative 02/13/19 21:30 U Benzodiazepines Scrn Presumptive negative 02/13/19 21:30 Presumptive negative 02/13/19 21:30 U Marijuana (THC) Screen Presumptive negative 02/13/19 21:30 Disclamer 02/13/19 21:30 Plasma/Serum Alcohol < 0.01 % (0-0.07) 02/13/19 21:04 Active Medications - Current Medications Current Medications: Generic Name Dose Route Start Last Admin Trade Name Freq PRN Reason Stop Dose Admin Acetaminophen 650 mg 02/14/19 00:46 02/14/19 09:23 Tylenol PO 650 mg Q4H PRN Administration Pain MILD(1-3)/Fever >100.5/STE[facility]ENSON Aspirin 325 mg 02/14/19 10:00 02/14/19 09:24 Aspirin PO 325 mg QDAY [facility] Administration Dextrose 50 ml 02/14/19 00:46 D50w (25gm) Syringe IV PRN PRN Hypoglycemia Enoxaparin Sodium 40 mg 02/14/19 10:00 02/14/19 09:24 Lovenox SUB-Q 40 mg QDAY [facility] Administration Sodium Chloride 1,000 mls @ 150 mls/hr 02/14/19 02:00 02/14/19 09:24 Nacl 0.9% 1000 Ml IV 150 mls/hr DIRECT [facility] Administration Insulin Human Lispro 0 unit 02/14/19 06:00 02/14/19 05:44 Humalog SUB-Q 4 unit Q6HR [facility] Administration Protocol Ondansetron HCl 4 mg 02/14/19 00:46 Zofran IV Q8H PRN Nausea And Vomiting Pravastatin Sodium 20 mg 02/14/19 22:00 Pravachol PO QHS [facility] Sodium Chloride 10 ml 02/14/19 10:00 02/14/19 09:24 Sodium Chloride Flush Syringe 10 Ml IV 10 ml BID [facility] Administration Sodium Chloride 10 ml 02/14/19 00:46 Sodium Chloride Flush Syringe 10 Ml IV PRN PRN LINE FLUSH
--- NOTE | 2019-02-14 14:04 | Magnetic Resonance Report ---
MRI OF THE BRAIN WITHOUT CONTRAST: HISTORY: Stroke PROCEDURE: Multiplanar, multisequence MR imaging of the brain without IV contrast was performed. FINDINGS: The brain parenchyma signal intensity and its brewer white interface are within normal limits on all sequences. No evidence for acute ischemia or hemorrhage. No chronic infarct or extra-axial fluid collection. A 1 cm extra-axial mass is identified just anterior to the right cerebellar hemisphere on T2 image 8. This is in the vicinity of the right cerebellopontine angle although it appears separate from the cranial 7/8 nerve complex. I suspect this represents a small incidental meningioma. In retrospect, this is unchanged since the CT head dated 02/14/17. The midline structures are central. The basal cisterns are patent. Normal ventricular size. The orbital cavities and sella turcica demonstrate no abnormality. The visualized paranasal sinuses and mastoid air cells are well aerated. IMPRESSION: No acute intracranial process. No acute or subacute ischemia is identified. Probable small meningioma near the right cerebellopontine angle as described. This could be further evaluated with MR with contrast if needed.
--- NOTE | 2019-02-14 14:04 | Magnetic Resonance Report ---
MRA HEAD WITHOUT CONTRAST HISTORY: Stroke. [id number] imaging with MIP reformations of [place] is submitted. The arteries appear widely patent and free of hemodynamically significant stenosis, aneurysm or dissection. IMPRESSION: Unremarkable MRA head.
--- NOTE | 2019-02-14 17:51 | Consultation ---
History of Present Illness Consult date: 02/14/19 Chief complaint: encephalopathy History of present illness: This is a 53 YO F who presented to the ED after family found her minimally responsive and confused. Daughter said a family member called her and said she should check on her mom. When she called her pt would not speak, her small child was talking to her and holding the phone. Pt is more awake now but is not fully oriented and keeps referring to her mother who is . Past History Past Medical History: diabetes, hypertension Past Surgical History: No surgical history Social history: lives with family Family history: hypertension Medications and Allergies Allergies Allergy/AdvReac Type Severity Reaction Status Date / Time lisinopril Allergy Itching Verified 02/14/19 01:03 oxycodone Allergy Itching Verified 02/14/19 01:03 Home Medications Medication Instructions Recorded Confirmed Last Taken Type Insulin Detemir [Levemir] 100 unit SQ QHS #1 vial 10/23/16 02/14/19 Unknown Rx Insulin Lispro [HumaLOG VIAL] 0 units SQ AC 10/23/16 02/14/19 Unknown History Lisinopril [Zestril] 5 mg PO QDAY 10/23/16 02/14/19 Unknown History Cyclobenzaprine [Flexeril] 10 mg PO Q8H PRN #12 tablet 02/14/17 02/14/19 Unknown Rx Ibuprofen [Motrin] 600 mg PO Q8H PRN #30 tablet 02/14/17 02/14/19 Unknown Rx Baclofen 10 mg PO BID PRN 02/14/19 02/14/19 Unknown History Losartan 25 mg PO QDAY 02/14/19 02/14/19 Unknown History Metoprolol SUCCINATE ER TAB 25 mg PO QDAY 02/14/19 02/14/19 Unknown History Nortriptyline 10 mg PO QHS 02/14/19 02/14/19 Unknown History Pregabalin 100 mg PO BID 02/14/19 02/14/19 Unknown History Rosuvastatin (Nf) 40 mg PO QDAY 02/14/19 02/14/19 Unknown History Sertraline 50 mg PO QDAY 02/14/19 02/14/19 Unknown History Xarelto 20 mg PO QAC 02/14/19 02/14/19 Unknown History hydrOXYzine HCL 25 mg PO QID PRN 02/14/19 02/14/19 Unknown History metFORMIN 1,000 mg PO QAC 02/14/19 02/14/19 Unknown History Active Meds: Active Medications Acetaminophen (Tylenol) 650 mg PO Q4H PRN PRN Reason: Pain MILD(1-3)/Fever >100.5/STEPHENSON Last Admin: 02/14/19 14:38 Dose: 650 mg Documented by: Aspirin (Aspirin) 325 mg PO QDAY [facility] Last Admin: 02/14/19 09:24 Dose: 325 mg Documented by: Dextrose (D50w (25gm) Syringe) 50 ml IV PRN PRN PRN Reason: Hypoglycemia Enoxaparin Sodium (Lovenox) 40 mg SUB-Q QDAY [facility] Last Admin: 02/14/19 09:24 Dose: 40 mg Documented by: Sodium Chloride (Nacl 0.9% 1000 Ml) 1,000 mls @ 150 mls/hr IV DIRECT [facility] Last Admin: 02/14/19 09:24 Dose: 150 mls/hr Documented by: Insulin Human Lispro (Humalog) 0 unit SUB-Q Q6HR [facility]; Protocol Last Admin: 02/14/19 05:44 Dose: 4 unit Documented by: Ondansetron HCl (Zofran) 4 mg IV Q8H PRN PRN Reason: Nausea And Vomiting Pravastatin Sodium (Pravachol) 20 mg PO QHS [facility] Sodium Chloride (Sodium Chloride Flush Syringe 10 Ml) 10 ml IV BID [facility] Last Admin: 02/14/19 09:24 Dose: 10 ml Documented by: Sodium Chloride (Sodium Chloride Flush Syringe 10 Ml) 10 ml IV PRN PRN PRN Reason: LINE FLUSH Review of Systems ROS unobtainable: due to mental status Physical Examination - Vital Signs Vital Signs: Vital Signs Pulse Resp BP Pulse Ox 100 H 9 L 165/100 97 02/13/19 20:00 02/13/19 20:00 02/13/19 20:00 02/13/19 20:00 - Constitutional General appearance: comfortable - EENT EENT: Present: PERRL, mucous membranes moist - Respiratory Respiratory: Present: lungs clear - Cardiovascular Cardiovascular: Present: regular rate Extremities: Present: no peripheral edema bilatateraly - Gastrointestinal Gastrointestinal: Present: normoactive bowel sounds - Integumentary Integumentary: Present: normal - Neurologic Cranial nerve examination: PERRL, EOMI, VFF Motor examination - right side: 4/5: hip flexors, knee extensors, dorsiflexion, toe extension (EHL), plantarflexion, 5/5: biceps, triceps, wrist flexion, wrist extension, flow manager Motor examination - left side: 3/5: hip flexors, knee extensors, dorsiflexion, toe extension (EHL), plantarflexion, 5/5: biceps, triceps, wrist flexion, wrist extension, flow manager Detailed sensory examination: intact Reflex and gait examination: other (unsteady without walker) Reflexes: 0: ankle, bicep, knee, tricep Results - Laboratory Findings CBC and BMP: 02/14/19 04:11 02/14/19 04:11 Abnormal Lab Findings: Abnormal Labs 02/13/19 02/13/19 02/13/19 21:04 21:04 21:04 MCH 26 L Lymph % (Auto) [place] % (Auto) 9.7 H Eos % (Auto) 6.4 H [place] # Eos # 0.5 H POC ABG pCO2 BUN 24 H Glucose 335 H POC Glucose Calcium Albumin 3.6 L Salicylates Acetaminophen 02/13/19 02/13/19 02/13/19 21:04 21:04 23:16 MCH Lymph % (Auto) [place] % (Auto) Eos % (Auto) [place] # Eos # POC ABG pCO2 48.8 H BUN Glucose POC Glucose Calcium Albumin Salicylates < 0.3 L Acetaminophen < 5.0 L 02/14/19 02/14/19 02/14/19 01:14 04:11 04:11 MCH 26 L Lymph % (Auto) 40.7 H [place] % (Auto) 11.9 H Eos % (Auto) 6.0 H [place] # 0.9 H Eos # POC ABG pCO2 BUN 19 H Glucose 245 H POC Glucose 358 H Calcium 8.3 L Albumin Salicylates Acetaminophen 02/14/19 02/14/19 05:30 11:30 MCH Lymph % (Auto) [place] % (Auto) Eos % (Auto) [place] # Eos # POC ABG pCO2 BUN Glucose POC Glucose 267 H 146 H Calcium Albumin Salicylates Acetaminophen - Diagnostic Findings Additional findings: MRI Brain nothing acute Assessment and Plan This is a 53 YO F with acute encephalopathy, etiology unclear. Possibly drug induced Recommend: Pt had unremarkable MRI Will order EEG Labs unremarkable so far but will add TSH for completeness Pt had trouble with orientation questions but was able to ask in detail about her kidney function Continue care for all medical issues as you are doing POC discussed at length with pt and daughter at bedside
[2019-02-14] MEDS: PRAVACHOL PO SCH (21:46)
[2019-02-14] MEDS ORDERED: BENADRYL PO PRN (23:04)
[2019-02-15] MEDS: NACL 0.9% 1000 ML 1,000 ML IV SCH (00:38)
[2019-02-15] MEDS: HumaLOG SUB-Q SCH ×7 (00:38→22:35)
[2019-02-15 07:01] LABS: Chol/HDL Ratio 2.91 %
[2019-02-15] MEDS: LOVENOX SUB-Q SCH (11:01)
[2019-02-15] MEDS: ASPIRIN PO SCH (11:02)
[2019-02-15] MEDS: SODIUM CHLORIDE FLUSH SYRINGE 10 ML IV SCH ×2 (11:02→22:36)
[2019-02-15] MEDS: ZOFRAN IV PRN ×2 (11:04→22:36)
--- NOTE | 2019-02-15 12:21 | Progress Note ---
Assessment and Plan Assessment and plan: --Acute encephalopathy, probably drug-induced, r/o CVA Neuro workup CT head; no acute abnormality MRI; no acute intracranial process probable small meningioma near the right cerebellopontine angle, further evaluation as outpatient if needed MRA; normal study Nerology evaluation noted Follow EEG, supportive care --Hypertension; moderate control Continue current antihypertensives and when necessary medications --Diabetes complicated by neuropathy Accu-Chek sliding scale coverage and ADA diet and insulin as needed --Obesity; BMI 36.5 Advised adduction when medically stable --DVT prophylaxis; Lovenox -- Physical therapy and occupational therapy DC planning to case management Monitor closely and adjust management as needed History Interval history: Patient seen and examined medical records reviewed Patient's pneumonia workup is in progress Neurology evaluation and recommendations noted Following EEG Hospitalist Physical - Constitutional Vitals: Temp Pulse Resp BP Pulse Ox 97.9 F 92 H 16 140/76 100 02/15/19 07:31 02/15/19 07:31 02/15/19 07:31 02/15/19 07:31 02/15/19 12:02 General appearance: Present: no acute distress, well-nourished, obese, other (alert and awake response appropriately) - EENT Eyes: Present: PERRL, EOM intact - Neck Neck: Present: supple, normal ROM - Respiratory Respiratory effort: normal Respiratory: bilateral: diminished, negative: rales, rhonchi, wheezing - Cardiovascular Rhythm: regular Heart Sounds: Present: S1 & S2 - Extremities Extremities: no ischemia, No edema - Abdominal General gastrointestinal: soft, non-tender, non-distended, normal bowel sounds - Integumentary Integumentary: Present: clear, warm - Psychiatric Psychiatric: appropriate mood/affect - Neurologic Neurologic: CNII-XII intact, moves all extremities Results - Labs CBC & Chem 7: 02/14/19 04:11 02/14/19 04:11 Labs: Laboratory Last Values WBC 7.3 K/mm3 (4.5-11.0) 02/14/19 04:11 RBC 4.01 M/mm3 (3.65-5.03) 02/14/19 04:11 Hgb 10.6 gm/dl (10.1-14.3) 02/14/19 04:11 Hct 32.6 % (30.3-42.9) 02/14/19 04:11 MCV 81 fl (79-97) 02/14/19 04:11 MCH 26 pg (28-32) L 02/14/19 04:11 MCHC 32 % (30-34) 02/14/19 04:11 RDW 14.1 % (13.2-15.2) 02/14/19 04:11 Plt Count 256 K/mm3 (140-440) 02/14/19 04:11 Lymph % (Auto) 40.7 % (13.4-35.0) H 02/14/19 04:11 [place] % (Auto) 11.9 % (0.0-7.3) H 02/14/19 04:11 Eos % (Auto) 6.0 % (0.0-4.3) H 02/14/19 04:11 Baso % (Auto) 0.5 % (0.0-1.8) 02/14/19 04:11 Lymph # 3.0 K/mm3 (1.2-5.4) 02/14/19 04:11 [place] # 0.9 K/mm3 (0.0-0.8) H 02/14/19 04:11 Eos # 0.4 K/mm3 (0.0-0.4) 02/14/19 04:11 Baso # 0.0 K/mm3 (0.0-0.1) 02/14/19 04:11 Seg Neutrophils % 40.9 % (40.0-70.0) 02/14/19 04:11 Seg Neutrophils # 3.0 K/mm3 (1.8-7.7) 02/14/19 04:11 PT 12.4 Sec. (12.2-14.9) 02/13/19 21:04 INR 0.95 (0.87-1.13) 02/13/19 21:04 APTT 32.0 Sec. (24.2-36.6) 02/13/19 21:04 POC ABG pH 7.350 (7.35-7.45) 02/13/19 23:16 POC ABG pCO2 48.8 (35-45) H 02/13/19 23:16 POC ABG pO2 84 (80-105) 02/13/19 23:16 POC ABG HCO3 26.9 (22-26 mml/L) 02/13/19 23:16 POC ABG Total CO2 28 (23-27mmol/L) 02/13/19 23:16 POC ABG O2 Sat 96 02/13/19 23:16 POC ABG Base Excess 1 ((-2) - (+3)mmol/L) 02/13/19 23:16 21 % 02/13/19 23:16 Sodium 142 mmol/L (137-145) 02/14/19 04:11 Potassium 3.9 mmol/L (3.6-5.0) 02/14/19 04:11 Chloride 106.2 mmol/L (98-107) 02/14/19 04:11 Carbon Dioxide 24 mmol/L (22-30) 02/14/19 04:11 16 mmol/L 02/14/19 04:11 BUN 19 mg/dL (7-17) H 02/14/19 04:11 1.0 mg/dL (0.7-1.2) 02/14/19 04:11 Estimated GFR > 60 ml/min 02/14/19 04:11 19 % 02/14/19 04:11 Glucose 245 mg/dL (65-100) H 02/14/19 04:11 POC Glucose 247 (70-105) H 02/15/19 11:36 Calcium 8.3 mg/dL (8.4-10.2) L 02/14/19 04:11 < 0.20 mg/dL (0.1-1.2) 02/13/19 21:04 < 0.2 mg/dL (0-0.2) 02/13/19 21:04 0.0 mg/dL 02/13/19 21:04 AST 12 units/L (5-40) 02/13/19 21:04 ALT 11 units/L (7-56) 02/13/19 21:04 128 units/L (35-129) 02/13/19 21:04 36.0 umol/L (25-60) 02/13/19 23:16 < 0.010 ng/mL (0.00-0.029) 02/13/19 21:04 7.8 g/dL (6.3-8.2) 02/13/19 21:04 3.6 g/dL (3.9-5) L 02/13/19 21:04 0.9 % 02/13/19 21:04 Triglycerides 127 mg/dL (2-149) 02/15/19 06:07 Cholesterol 105 mg/dL (50-199) 02/15/19 06:07 60 mg/dL (50-130) 02/15/19 06:07 36 mg/dL (40-59) L 02/15/19 06:07 2.91 % 02/15/19 06:07 16 units/L (13-60) 02/13/19 21:04 TSH 1.330 mlU/mL (0.270-4.200) 02/14/19 19:24 Yellow (Yellow) 02/13/19 21:30 Clear (Clear) 02/13/19 21:30 5.0 (5.0-7.0) 02/13/19 21:30 Ur Specific [place] 1.012 (1.003-1.030) 02/13/19 21:30 <15 mg/dl mg/dL (Negative) 02/13/19 21:30 >=500 mg/dL (Negative) 02/13/19 21:30 Neg mg/dL (Negative) 02/13/19 21:30 Neg (Negative) 02/13/19 21:30 Neg (Negative) 02/13/19 21:30 Neg (Negative) 02/13/19 21:30 < 2.0 mg/dL (<2.0) 02/13/19 21:30 Ur Leukocyte Esterase Neg (Negative) 02/13/19 21:30 < 1.0 /HPF (0.0-6.0) 02/13/19 21:30 < 1.0 /HPF (0.0-6.0) 02/13/19 21:30 U Epithel Cells (Auto) 1.0 /HPF (0-13.0) 02/13/19 21:30 Few /HPF 02/13/19 21:30 Salicylates < 0.3 mg/dL (2.8-20.0) L 02/13/19 21:04 Presumptive negative 02/13/19 21:30 Presumptive negative 02/13/19 21:30 Acetaminophen < 5.0 ug/mL (10.0-30.0) L 02/13/19 21:04 Ur Barbiturates Screen Presumptive negative 02/13/19 21:30 Ur Phencyclidine Scrn Presumptive negative 02/13/19 21:30 Ur Amphetamines Screen Presumptive negative 02/13/19 21:30 U Benzodiazepines Scrn Presumptive negative 02/13/19 21:30 Presumptive negative 02/13/19 21:30 U Marijuana (THC) Screen Presumptive negative 02/13/19 21:30 Disclamer 02/13/19 21:30 Plasma/Serum Alcohol < 0.01 % (0-0.07) 02/13/19 21:04 Active Medications - Current Medications Current Medications: Generic Name Dose Route Start Last Admin Trade Name Freq PRN Reason Stop Dose Admin Acetaminophen 650 mg 02/14/19 00:46 02/14/19 21:46 Tylenol PO 650 mg Q4H PRN Administration Pain MILD(1-3)/Fever >100.5/STEPHENSON Aspirin 325 mg 02/14/19 10:00 02/15/19 11:02 Aspirin PO 325 mg QDAY [facility] Administration Dextrose 50 ml 02/14/19 00:46 D50w (25gm) Syringe IV PRN PRN Hypoglycemia Diphenhydramine HCl 25 mg 02/14/19 23:04 02/15/19 00:41 Benadryl PO 25 mg Q6H PRN Administration Itching Enoxaparin Sodium 40 mg 02/14/19 10:00 02/15/19 11:01 Lovenox SUB-Q 40 mg QDAY [facility] Administration Sodium Chloride 1,000 mls @ 150 mls/hr 02/14/19 02:00 02/15/19 00:38 Nacl 0.9% 1000 Ml IV 150 mls/hr DIRECT [facility] Administration Insulin Human Lispro 0 unit 02/14/19 06:00 02/15/19 05:33 Humalog SUB-Q 3 unit Q6HR [facility] Administration Protocol Ondansetron HCl 4 mg 02/14/19 00:46 02/15/19 11:04 Zofran IV 4 mg Q8H PRN Administration Nausea And Vomiting Pravastatin Sodium 20 mg 02/14/19 22:00 02/14/19 21:46 Pravachol PO 20 mg QHS [facility] Administration Sodium Chloride 10 ml 02/14/19 10:00 02/15/19 11:02 Sodium Chloride Flush Syringe 10 Ml IV 10 ml BID [facility] Administration Sodium Chloride 10 ml 02/14/19 00:46 Sodium Chloride Flush Syringe 10 Ml IV PRN PRN LINE FLUSH
[2019-02-15] MEDS: APRESOLINE IV PRN (22:36)
[2019-02-15] MEDS: PRAVACHOL PO SCH (22:38)
[2019-02-15] MEDS: TYLENOL PO PRN (22:42)
[2019-02-16] MEDS: ZOFRAN IV PRN ×2 (05:10→12:52)
[2019-02-16] MEDS: APRESOLINE IV PRN (05:11)
[2019-02-16 05:57] LABS: BUN/Creatinine Ratio 13; Blood Urea Nitrogen 8 mg/dL (7-17); Calcium 8.8 mg/dL (8.4-10.2); Hemolysis Index 149
[2019-02-16] MEDS: LOVENOX SUB-Q SCH (09:01)
[2019-02-16] MEDS: ASPIRIN PO SCH (09:01)
[2019-02-16] MEDS: HumaLOG SUB-Q SCH ×4 (09:02→22:14)
--- NOTE | 2019-02-16 11:27 | Progress Note ---
Assessment and Plan Assessment and plan: --Acute encephalopathy, probably drug-induced, r/o CVA Neuro workup : Negative ACUTE CVA.ruled out Possible TIA: Aspirin and statin Work up: CT head; no acute abnormality MRI; no acute intracranial process probable small meningioma near the right cerebellopontine angle, further evaluation as outpatient if needed MRA; normal study Echo; EF 40%, negative bubble study Carotid Doppler; Nerology evaluation noted Follow EEG, supportive care --Hypertension; moderate control Continue current antihypertensives and when necessary medications --Diabetes complicated by neuropathy Accu-Chek sliding scale coverage and ADA diet and insulin as needed --Obesity; BMI 36.5 Advised adduction when medically stable --DVT prophylaxis; Lovenox -- Physical therapy evaluated, tolerated by mouth Initially recommended SNF, however. Patient's ambulation significantly improved PT is recommending home with home health and home PT Possible discharge home tomorrow with home health services stable Plan of care is deferred to the patient and her nurse Monitor closely and adjust management as needed Patient is stable to be transferred out of telemetry to medical floor History Interval history: Patient seen and examined medical records Pt feels slightly better tolerated physical therapy Hospitalist Physical - Constitutional Vitals: Temp Pulse Resp BP Pulse Ox 97.8 F 99 H 18 118/78 100 02/16/19 07:51 02/16/19 07:51 02/16/19 07:51 02/16/19 07:51 02/16/19 07:51 General appearance: Present: no acute distress, well-nourished, obese - EENT Eyes: Present: PERRL, EOM intact - Neck Neck: Present: supple, normal ROM - Respiratory Respiratory effort: normal Respiratory: bilateral: diminished, negative: rales, rhonchi, wheezing - Cardiovascular Rhythm: regular Heart Sounds: Present: S1 & S2 - Extremities Extremities: no ischemia, No edema - Abdominal General gastrointestinal: soft, non-tender, non-distended, normal bowel sounds - Integumentary Integumentary: Present: clear, warm - Psychiatric Psychiatric: appropriate mood/affect, cooperative - Neurologic Neurologic: moves all extremities Results - Labs CBC & Chem 7: 02/14/19 04:11 02/16/19 04:26 Labs: Laboratory Last Values WBC 7.3 K/mm3 (4.5-11.0) 02/14/19 04:11 RBC 4.01 M/mm3 (3.65-5.03) 02/14/19 04:11 Hgb 10.6 gm/dl (10.1-14.3) 02/14/19 04:11 Hct 32.6 % (30.3-42.9) 02/14/19 04:11 MCV 81 fl (79-97) 02/14/19 04:11 MCH 26 pg (28-32) L 02/14/19 04:11 MCHC 32 % (30-34) 02/14/19 04:11 RDW 14.1 % (13.2-15.2) 02/14/19 04:11 Plt Count 256 K/mm3 (140-440) 02/14/19 04:11 Lymph % (Auto) 40.7 % (13.4-35.0) H 02/14/19 04:11 Blanco % (Auto) 11.9 % (0.0-7.3) H 02/14/19 04:11 Eos % (Auto) 6.0 % (0.0-4.3) H 02/14/19 04:11 Baso % (Auto) 0.5 % (0.0-1.8) 02/14/19 04:11 Lymph # 3.0 K/mm3 (1.2-5.4) 02/14/19 04:11 Blanco # 0.9 K/mm3 (0.0-0.8) H 02/14/19 04:11 Eos # 0.4 K/mm3 (0.0-0.4) 02/14/19 04:11 Baso # 0.0 K/mm3 (0.0-0.1) 02/14/19 04:11 Seg Neutrophils % 40.9 % (40.0-70.0) 02/14/19 04:11 Seg Neutrophils # 3.0 K/mm3 (1.8-7.7) 02/14/19 04:11 PT 12.4 Sec. (12.2-14.9) 02/13/19 21:04 INR 0.95 (0.87-1.13) 02/13/19 21:04 APTT 32.0 Sec. (24.2-36.6) 02/13/19 21:04 POC ABG pH 7.350 (7.35-7.45) 02/13/19 23:16 POC ABG pCO2 48.8 (35-45) H 02/13/19 23:16 POC ABG pO2 84 (80-105) 02/13/19 23:16 POC ABG HCO3 26.9 (22-26 mml/L) 02/13/19 23:16 POC ABG Total CO2 28 (23-27mmol/L) 02/13/19 23:16 POC ABG O2 Sat 96 02/13/19 23:16 POC ABG Base Excess 1 ((-2) - (+3)mmol/L) 02/13/19 23:16 21 % 02/13/19 23:16 Sodium 140 mmol/L (137-145) 02/16/19 04:26 Potassium 4.6 mmol/L (3.6-5.0) 02/16/19 04:26 Chloride 104.8 mmol/L (98-107) 02/16/19 04:26 Carbon Dioxide 20 mmol/L (22-30) L 02/16/19 04:26 20 mmol/L 02/16/19 04:26 BUN 8 mg/dL (7-17) 02/16/19 04:26 0.6 mg/dL (0.7-1.2) L 02/16/19 04:26 Estimated GFR > 60 ml/min 02/16/19 04:26 13 % 02/16/19 04:26 Glucose 254 mg/dL (65-100) H 02/16/19 04:26 POC Glucose 290 (70-105) H 02/16/19 07:17 13.8 % (4-6) H 02/16/19 04:26 Calcium 8.8 mg/dL (8.4-10.2) 02/16/19 04:26 < 0.20 mg/dL (0.1-1.2) 02/13/19 21:04 < 0.2 mg/dL (0-0.2) 02/13/19 21:04 0.0 mg/dL 02/13/19 21:04 AST 12 units/L (5-40) 02/13/19 21:04 ALT 11 units/L (7-56) 02/13/19 21:04 128 units/L (35-129) 02/13/19 21:04 36.0 umol/L (25-60) 02/13/19 23:16 < 0.010 ng/mL (0.00-0.029) 02/13/19 21:04 7.8 g/dL (6.3-8.2) 02/13/19 21:04 3.6 g/dL (3.9-5) L 02/13/19 21:04 0.9 % 02/13/19 21:04 Triglycerides 127 mg/dL (2-149) 02/15/19 06:07 Cholesterol 105 mg/dL (50-199) 02/15/19 06:07 60 mg/dL (50-130) 02/15/19 06:07 36 mg/dL (40-59) L 02/15/19 06:07 2.91 % 02/15/19 06:07 16 units/L (13-60) 02/13/19 21:04 TSH 1.330 mlU/mL (0.270-4.200) 02/14/19 19:24 Yellow (Yellow) 02/13/19 21:30 Clear (Clear) 02/13/19 21:30 5.0 (5.0-7.0) 02/13/19 21:30 Ur Specific [place] 1.012 (1.003-1.030) 02/13/19 21:30 <15 mg/dl mg/dL (Negative) 02/13/19 21:30 >=500 mg/dL (Negative) 02/13/19 21:30 Neg mg/dL (Negative) 02/13/19 21:30 Neg (Negative) 02/13/19 21:30 Neg (Negative) 02/13/19 21:30 Neg (Negative) 02/13/19 21:30 < 2.0 mg/dL (<2.0) 02/13/19 21:30 Ur Leukocyte Esterase Neg (Negative) 02/13/19 21:30 < 1.0 /HPF (0.0-6.0) 02/13/19 21:30 < 1.0 /HPF (0.0-6.0) 02/13/19 21:30 U Epithel Cells (Auto) 1.0 /HPF (0-13.0) 02/13/19 21:30 Few /HPF 02/13/19 21:30 Salicylates < 0.3 mg/dL (2.8-20.0) L 02/13/19 21:04 Presumptive negative 02/13/19 21:30 Presumptive negative 02/13/19 21:30 Acetaminophen < 5.0 ug/mL (10.0-30.0) L 02/13/19 21:04 Ur Barbiturates Screen Presumptive negative 02/13/19 21:30 Ur Phencyclidine Scrn Presumptive negative 02/13/19 21:30 Ur Amphetamines Screen Presumptive negative 02/13/19 21:30 U Benzodiazepines Scrn Presumptive negative 02/13/19 21:30 Presumptive negative 02/13/19 21:30 U Marijuana (THC) Screen Presumptive negative 02/13/19 21:30 Disclamer 02/13/19 21:30 Plasma/Serum Alcohol < 0.01 % (0-0.07) 02/13/19 21:04 Active Medications - Current Medications Current Medications: Generic Name Dose Route Start Last Admin Trade Name Freq PRN Reason Stop Dose Admin Acetaminophen 650 mg 02/14/19 00:46 02/15/19 22:42 Tylenol PO 650 mg Q4H PRN Administration Pain MILD(1-3)/Fever >100.5/STEPHENSON Aspirin 325 mg 02/14/19 10:00 02/16/19 09:01 Aspirin PO 325 mg QDAY AWI Administration Dextrose 50 ml 02/14/19 00:46 D50w (25gm) Syringe IV PRN PRN Hypoglycemia Diphenhydramine HCl 25 mg 02/14/19 23:04 02/15/19 00:41 Benadryl PO 25 mg Q6H PRN Administration Itching Enoxaparin Sodium 40 mg 02/14/19 10:00 02/16/19 09:01 Lovenox SUB-Q 40 mg QDAY WAI Administration Hydralazine HCl 10 mg 02/15/19 22:02 02/16/19 05:11 Apresoline IV 10 mg Q4H PRN Administration Blood Pressure Insulin Human Isoph/Insulin Regular 20 unit 02/16/19 08:00 02/16/19 09:01 Humulin 70/30 SUB-Q 20 unit BIDDIAB WAI Administration Insulin Human Lispro 0 unit 02/15/19 22:00 02/16/19 09:02 Humalog SUB-Q 6 unit ACHS WAI Administration Protocol Ondansetron HCl 4 mg 02/14/19 00:46 02/16/19 05:10 Zofran IV 4 mg Q8H PRN Administration Nausea And Vomiting Pravastatin Sodium 20 mg 02/14/19 22:00 02/15/19 22:38 Pravachol PO 20 mg QHS WAI Administration Sodium Chloride 10 ml 02/14/19 10:00 02/15/19 22:36 Sodium Chloride Flush Syringe 10 Ml IV 10 ml BID WAI Administration Sodium Chloride 10 ml 02/14/19 00:46 Sodium Chloride Flush Syringe 10 Ml IV PRN PRN LINE FLUSH
[2019-02-16] MEDS: SODIUM CHLORIDE FLUSH SYRINGE 10 ML IV SCH ×2 (12:58→22:14)
--- NOTE | 2019-02-16 22:12 | Vascular Lab Report ---
PROCEDURE: VL CAROTID DUPLEX BILAT TECHNIQUE: Duplex Doppler ultrasound of the common, internal and external carotid arteries and the v ertebral arteries was performed bilaterally. [place]field scale imaging, velocity spectral waveform analysis, and color flow Doppler were employed. HISTORY: encephalopathy/CVA COMPARISONS: None . Note: Measurement of carotid stenosis is based on flow velocity values that correlate with the [place] Symptomatic Carotid Endarterectomy Trial (NASCET) based stenosis criteria using the internal carotid artery diameter as the denominator for stenosis calculation. FINDINGS: RIGHT carotid artery: Velocities: ICA PSV: 77 cm/sec ICA End diastolic: 41 cm/sec CCA PSV: 106 cm/sec IC/CC ratio: 0.7 Plaque/: None significant. RIGHT vertebral artery: Antegrade systolic and diastolic flow LEFT carotid artery: Velocities: ICA PSV: 84 cm/sec ICA End diastolic: 47 cm/sec CCA PSV: 94 cm/sec IC/CC ratio: 0.9 Plaque: None significant. LEFT vertebral artery: Antegrade systolic and diastolic flow IMPRESSION: 1. RIGHT carotid: No stenosis. 2. LEFT carotid: No stenosis. 3. Vertebral arteries: Bilaterally antegrade. This document is electronically signed by Duane Dias MD., February 16 2019 10:10:05 PM ET
[2019-02-16] MEDS: PRAVACHOL PO SCH (22:13)
[2019-02-16] MEDS: TYLENOL PO PRN (22:30)
--- NOTE | 2019-02-17 08:55 | Discharge Summary ---
Providers - Providers Date of Admission: 02/14/19 00:46 Date of discharge: 02/17/19 Attending physician: RAFAELA STANLEY 02/14/19 00:46 Consult to Physician [CONS] Routine Comment: Consulting Provider: FARIHA RODRIGUEZ Physician Instructions: Reason For Exam: encephalopathy 02/14/19 00:58 Occupational Therapy Evaluate and Treat [CONS] Routine Comment: Reason For Exam: Neuro deficits Physical Therapy Evaluation and Treat [CONS] Routine Comment: Reason For Exam: Neuro deficits 02/14/19 08:05 Consult to Wound/ET Nurse [CONS] Routine Reason For Exam: wound eval Primary care physician: [facility] Hospitalization Condition: Stable Pertinent studies: Work up: CT head; no acute abnormality MRI; no acute intracranial process probable small meningioma near the right cerebellopontine angle, further evaluation as outpatient if needed MRA; normal study Echo; EF 40%, negative bubble study Carotid Doppler; Nerology evaluation noted Follow EEG, supportive care Hospital course: 53-year-old lady with a history of hypertension, diabetes complictated by Neuropathy comes emergency room for evaluation of altered mental status. Patient was given Narcan in the emergency room with no improvement in her mental status. She is lethargic, answers some questions. They she's in the hospital because her family could not wake her up, she is not sure if she took any extra Lyrica or nortriptyline. Emergency room physician stated that the daughter stated that she had slurred speech 2 days prior to this. This was extensively evaluated for CVA, workup is negative, acute CVA was ruled out Patient's metabolic encephalopathy drug-induced , secondary to to multiple medications Her medications are held, symptomatically managed, evaluated by neurology Today the symptoms completely resolved, alert awake oriented 3 Ambulatory tolerating oral nutrition Physical exam at discharge is unremarkable Discharge diagnosis: And Management --Acute encephalopathy, probably drug-induced, r/o CVA --Toxic Metabolic encephalopathy: POA now resolved Neuro workup : Negative ACUTE CVA.ruled out Possible TIA: Aspirin and statin Work up: CT head; no acute abnormality MRI; no acute intracranial process probable small meningioma near the right cerebellopontine angle, further evaluation as outpatient if needed MRA; normal study Echo; EF 40%, negative bubble study Carotid Doppler; Nerology evaluation noted Follow EEG, supportive care --Hypertension; moderate control Continue current antihypertensives and when necessary medications --Diabetes complicated by neuropathy Accu-Chek sliding scale coverage and ADA diet and insulin as needed --Obesity; BMI 36.5 Advised adduction when medically stable --DVT prophylaxis; Lovenox -- Physical therapy evaluated, tolerated by mouth Initially recommended SNF, however. Patient's ambulation significantly improved PT is recommending home with home health and home PT Possible discharge home tomorrow with home health services stable Plan of care is deferred to the patient and her nurse Monitor closely and adjust management as needed Patient is stable to be transferred out of telemetry to medical floor Disposition: [id number] HOME UNDER HOME HLTH Time spent for discharge: 32min Core Measure Documentation - Palliative Care Palliative Care/ Comfort Measures: Not Applicable - Core Measures Any of the following diagnoses?: none Exam - Constitutional Vitals: Temp Pulse Resp BP Pulse Ox 99.0 F 105 H 18 137/81 96 02/17/19 06:09 02/17/19 06:09 02/17/19 06:09 02/17/19 06:09 02/17/19 06:09 General appearance: Present: no acute distress, well-nourished - EENT Eyes: Present: PERRL, EOM intact - Neck Neck: Present: supple, normal ROM - Respiratory Respiratory effort: normal Respiratory: negative: rales, rhonchi, wheezing - Cardiovascular Rhythm: regular Heart Sounds: Present: S1 & S2 - Extremities Extremities: no ischemia, No edema - Abdominal General gastrointestinal: Present: soft, non-tender, non-distended, normal bowel sounds - Integumentary Integumentary: Present: clear, warm - Musculoskeletal Musculoskeletal: strength equal bilaterally - Psychiatric Psychiatric: appropriate mood/affect, cooperative - Neurologic Neurologic: moves all extremities Plan Activity: advance as tolerated, fall precautions Diet: diabetic Special Instructions: physical therapy Additional Instructions: Fall precautions. Follow-up primary care physician 3-5 days. Follow private neurology within 1 week. Review of medications are discontinued because of altered level of consciousness at the time of admission. Review all your home medications with PMD before resuming them Follow up with: ARSEN KUMAR MD [Referring] - 3-5 Days STELLA VILLANUEVA MD [Staff Physician] - 7 Days
[2019-02-17] MEDS: HumaLOG SUB-Q SCH (09:14)
[2019-02-17] MEDS: LOVENOX SUB-Q SCH (12:01)
[2019-02-17] MEDS: ASPIRIN PO SCH (12:01)
[2019-02-17] MEDS: SODIUM CHLORIDE FLUSH SYRINGE 10 ML IV SCH (12:04)
[2019-02-17 17:36] VITALS: BP 128/69
== END 2019-02-17 15:47 | disposition home health service (06) | DRG 92 ==
LOC: ED 19:34 → 4A 02-14 00:46 → 3A 02-16 23:03
PROVIDERS: ADMIT Internal Medicine; ATTEND Internal Medicine
PROC: 4A033R1 Measurement of Arterial Saturation, Peripheral, Percutaneous Approach (ICD-10-PCS; principal; 2019-02-13)
DX: G92 Toxic encephalopathy (principal); G45.9 Transient cerebral ischemic attack, unspecified; E11.65 Type 2 diabetes mellitus with hyperglycemia; I10 Essential (primary) hypertension; E11.40 Type 2 diabetes mellitus with diabetic neuropathy, unspecified; E66.9 Obesity, unspecified; J45.909 Unspecified asthma, uncomplicated; T50.995A Adverse effect of other drugs, medicaments and biological substances, initial encounter; Y92.89 Other specified places as the place of occurrence of the external cause; Z68.37 Body mass index [BMI] 37.0-37.9, adult; Z82.49 Family history of ischemic heart disease and other diseases of the circulatory system; Z88.5 Allergy status to narcotic agent; Z79.4 Long term (current) use of insulin; Z79.899 Other long term (current) drug therapy; Z90.49 Acquired absence of other specified parts of digestive tract; Z90.710 Acquired absence of both cervix and uterus
CPT/HCPCS: 36415; 70450; 70544; 70551; 71045; 80048; 80061; 80076; 80307; 80320; 81001; 82140; 82803; 82962; 83036; 83690; 84443; 84484; 85025; 85610; 85730; 93005; 93010; 93306; 93880; 95819; 96361; 96374; 96376; G0378; A9270-GY; G0480; J0360; J1650; J1815; J2310; J2405; J7030

== ENCOUNTER 2019-04-19 16:54 | Emergency (ER) | payer SELFPAY ==
[2019-04-19 17:54] LABS: Basophils # (Auto) 0.1 K/mm3 (0.0-0.1); Basophils % (Auto) 0.3 % (0.0-1.8); Eosinophils # (Auto) 0.1 K/mm3 (0.0-0.4); Eosinophils % (Auto) 0.7 % (0.0-4.3); Hematocrit 34.9 % (30.3-42.9); Hemoglobin 11.3 gm/dl (10.1-14.3); Lymphocytes # (Auto) 2.8 K/mm3 (1.2-5.4); Mean Corpuscular HGB Conc 33 % (30-34); Mean Corpuscular Volume 79 fl (79-97); Monocytes # (Auto) 2.1 K/mm3 (0.0-0.8); Monocytes % (Auto) 10.7 % (0.0-7.3); Platelet Count 404 K/mm3 (140-440); Red Blood Count 4.41 M/mm3 (3.65-5.03); Red Cell Distribution Width 14.1 % (13.2-15.2)
[2019-04-19 18:03] LABS: INR 1.23 (0.87-1.13)
[2019-04-19 18:04] LABS: Partial Thromboplastin Time 35.8 Sec. (24.2-36.6)
[2019-04-19] MEDS ORDERED: ATROVENT IH ONE (18:14)
[2019-04-19] MEDS ORDERED: SOLU-Medrol IV ONE (18:14)
[2019-04-19] MEDS ORDERED: PROVENTIL IH ONE (18:14)
[2019-04-19 18:19] LABS: Alanine Aminotransferase 12 units/L (7-56); Albumin 3.7 g/dL (3.9-5); BUN/Creatinine Ratio 15; Blood Urea Nitrogen 18 mg/dL (7-17); Calcium 9.6 mg/dL (8.4-10.2); Hemolysis Index 34
--- NOTE | 2019-04-19 18:19 | Emergency Department Report ---
ED Shortness of Breath HPI - General Chief Complaint: Dyspnea/Respdistress Stated Complaint: SOB Time Seen by Provider: 04/19/19 18:10 Source: EMS Mode of arrival: Stretcher Limitations: No Limitations - History of Present Illness Initial Comments: Patient is 53 years old female with history of hypertension, diabetes, asthma and congestive heart failure. Patient presented to the ER complaining of cough, productive with greenish sputum for the last 2 weeks. Patient is also complaining of shortness of breath. Patient denied any fever or chills. No chest pain. MD Complaint: shortness of breath, cough -: week(s) (2) - Related Data Home Medications Medication Instructions Recorded Confirmed Last Taken Insulin Lispro [HumaLOG VIAL] 0 units SQ AC 10/23/16 02/14/19 Unknown Losartan 25 mg PO QDAY 02/14/19 02/14/19 Unknown Rosuvastatin (Nf) 40 mg PO QDAY 02/14/19 02/14/19 Unknown Xarelto 20 mg PO QAC 02/14/19 02/14/19 Unknown metFORMIN 1,000 mg PO QAC 02/14/19 02/14/19 Unknown Previous Rx's Medication Instructions Recorded Last Taken Type Cyclobenzaprine [Flexeril 10 MG 10 mg PO Q8H PRN #12 tablet 02/14/17 Unknown Rx TAB] Ibuprofen [Motrin 600 MG tab] 600 mg PO Q8H PRN #30 tablet 02/14/17 Unknown Rx Insulin Detemir [Levemir VIAL] 10 unit SQ QHS #1 vial 02/17/19 Unknown Rx Allergies Allergy/AdvReac Type Severity Reaction Status Date / Time lisinopril Allergy Itching Verified 02/14/19 01:03 oxycodone Allergy Itching Verified 02/14/19 01:03 ED Review of Systems ROS: Stated complaint: SOB Other details as noted in HPI Comment: All other systems reviewed and negative Constitutional: denies: chills, fever Respiratory: cough, shortness of breath, SOB with exertion, SOB at rest. denies: wheezing Cardiovascular: denies: chest pain, palpitations Gastrointestinal: denies: abdominal pain, nausea, vomiting, diarrhea, constipation, hematemesis, melena, hematochezia Musculoskeletal: denies: back pain Neurological: denies: headache, weakness, numbness, paresthesias, confusion, abnormal gait ED Past Medical Hx - Past Medical History Hx Hypertension: Yes Hx Congestive Heart Failure: Yes Hx Diabetes: Yes Hx Asthma: Yes - Surgical History Hx Cholecystectomy: Yes Additional Surgical History: PDA REPAIR. X3. HERNIA REPAIR. ECTOPIC . HYSTERECTOMY - Social History Smoking Status: Never Smoker - Medications Home Medications: Home Medications Medication Instructions Recorded Confirmed Last Taken Type Insulin Lispro [HumaLOG VIAL] 0 units SQ AC 10/23/16 02/14/19 Unknown History Cyclobenzaprine [Flexeril 10 MG 10 mg PO Q8H PRN #12 tablet 02/14/17 02/14/19 Unknown Rx TAB] Ibuprofen [Motrin 600 MG tab] 600 mg PO Q8H PRN #30 tablet 02/14/17 02/14/19 Unknown Rx Losartan 25 mg PO QDAY 02/14/19 02/14/19 Unknown History Rosuvastatin (Nf) 40 mg PO QDAY 02/14/19 02/14/19 Unknown History Xarelto 20 mg PO QAC 02/14/19 02/14/19 Unknown History metFORMIN 1,000 mg PO QAC 02/14/19 02/14/19 Unknown History Insulin Detemir [Levemir VIAL] 10 unit SQ QHS #1 vial 02/17/19 02/14/19 Unknown Rx ED Physical Exam - General Limitations: No Limitations General appearance: alert, in no apparent distress - Head Head exam: Present: atraumatic, normocephalic, normal inspection - Eye Eye exam: Present: normal appearance - ENT ENT exam: Present: normal exam, normal orophraynx, mucous membranes moist - Neck Neck exam: Present: normal inspection, full ROM. Absent: tenderness, meningismus, lymphadenopathy, thyromegaly - Respiratory Respiratory exam: Present: normal lung sounds bilaterally, rales. Absent: respiratory distress, wheezes, rhonchi, stridor, chest wall tenderness, accessory muscle use, decreased breath sounds, prolonged expiratory - Cardiovascular Cardiovascular Exam: Present: regular rate, normal rhythm, normal heart sounds - GI/Abdominal GI/Abdominal exam: Present: soft, normal bowel sounds. Absent: distended, tenderness, guarding, rebound, rigid, organomegaly, mass, bruit, pulsatile mass, hernia - Extremities Exam Extremities exam: Present: normal inspection, full ROM, normal capillary refill. Absent: pedal edema, calf tenderness - Back Exam Back exam: Present: normal inspection, full ROM. Absent: CVA tenderness (R), CVA tenderness (L) - Neurological Exam Neurological exam: Present: alert, oriented X3, CN II-XII intact, normal gait, reflexes normal - Skin Skin exam: Present: warm, intact, normal color ED Course Vital Signs 04/19/19 04/19/19 04/19/19 17:02 17:16 17:30 Temperature Pulse Rate 127 H Respiratory 29 H Rate Blood Pressure 85/64 140/111 O2 Sat by Pulse 96 95 97 Oximetry 04/19/19 04/19/19 04/19/19 17:42 17:45 17:47 Temperature 98.5 F Pulse Rate 125 H 129 H Respiratory 25 H 26 H 18 Rate Blood Pressure 135/69 O2 Sat by Pulse 100 98 Oximetry 04/19/19 04/19/19 04/19/19 18:01 18:15 18:30 Temperature Pulse Rate 133 H 127 H 122 H Respiratory 14 21 19 Rate Blood Pressure 150/121 150/121 120/81 O2 Sat by Pulse 95 95 92 Oximetry ED Medical Decision Making - Lab Data Result diagrams: 04/19/19 17:40 04/19/19 17:40 - Radiology Data Radiology results: report reviewed Chest x-ray is unremarkable. - Medical Decision Making Patient is 53 years old female with history of hypertension, diabetes, asthma and congestive heart failure. Patient presented to the ER complaining of cough, productive with greenish sputum for the last 2 weeks. Patient is also complaining of shortness of breath. Patient denied any fever or chills. No chest pain. Labs reviewed and showed a white blood cells of 19,000. Chest x-ray is unremarkable. Patient received albuterol, Solu-Medrol and Zosyn. Patient symptoms is consistent with acute bronchitis. Patient will be discharged home with Levaquin and advised to follow-up with her primary care physician in the next 2-3 days and to return to the ER if symptoms are not improved. Critical care attestation.: If time is entered above; I have spent that time in minutes in the direct care of this critically ill patient, excluding procedure time. ED Disposition Clinical Impression: Shortness of breath, Asthmatic bronchitis Disposition: - TO HOME OR SELFCARE Is pt being admited?: No Condition: Stable Instructions: Acute Bronchitis (ED), Dyspnea (ED) Referrals: [facility] [Provider Group] - 3-5 Days
--- NOTE | 2019-04-19 18:24 | XRay Report ---
CHEST 1 VIEW 04/19/2019 5:46 PM INDICATION / CLINICAL INFORMATION: Dyspnea. COMPARISON: Chest x-ray on 02/13/2019. FINDINGS: SUPPORT DEVICES: None. HEART / MEDIASTINUM: No significant abnormality. LUNGS / PLEURA: No significant pulmonary or pleural abnormality. No pneumothorax. ADDITIONAL FINDINGS: No significant additional findings. IMPRESSION: 1. No acute findings. Signer Name: Marcin Willams MD Signed: 04/19/2019 6:20 PM Workstation Name: [id number]
[2019-04-19] MEDS ORDERED: ROBITUSSIN AC PO ONE (18:30)
[2019-04-19 18:38] VITALS: BP 120/81
[2019-04-19] MEDS ORDERED: ZOSYN/NS 3.375GM/50ML 3.375 GM/50 ML BAG IV ONE (19:19)
== END 2019-04-19 20:16 | disposition home or self-care (01) ==
LOC: ED 16:54
DX: J45.909 Unspecified asthma, uncomplicated (principal); I11.0 Hypertensive heart disease with heart failure; I50.9 Heart failure, unspecified; E11.9 Type 2 diabetes mellitus without complications; Z90.49 Acquired absence of other specified parts of digestive tract; Z90.710 Acquired absence of both cervix and uterus; Z79.899 Other long term (current) drug therapy; Z88.5 Allergy status to narcotic agent; Z88.8 Allergy status to other drugs, medicaments and biological substances
CPT/HCPCS: 36415; 71045; 80053; 83880; 84484; 85025; 85610; 85730; 87040; 93005; 93010; 94640; 96365; 96375; 99284; J2543; J2930

== ENCOUNTER 2019-07-16 07:55 | Emergency (ER) | payer MEDICARE ==
--- NOTE | 2019-07-16 08:48 | XRay Report ---
CHEST 2 VIEWS INDICATION / CLINICAL INFORMATION: SOB, CHF hx. COMPARISON: Chest x-ray on 04/19/2019. FINDINGS: SUPPORT DEVICES: None. HEART / MEDIASTINUM: Mild cardiomegaly. LUNGS / PLEURA: There is mild bilateral interstitial prominence most likely reflecting mild interstit ial edema. There is no focal consolidation or significant pleural effusion. No pneumothorax. ADDITIONAL FINDINGS: No significant additional findings. IMPRESSION: 1. Probable mild interstitial pulmonary edema, new compared with 04/19/2019. Signer Name: Marcin Willams MD Signed: 07/16/2019 8:43 AM Workstation Name: [id number]
[2019-07-16 09:56] LABS: Hematocrit 32.7 % (30.3-42.9); Hemoglobin 10.7 gm/dl (10.1-14.3); Mean Corpuscular HGB Conc 33 % (30-34); Mean Corpuscular Volume 80 fl (79-97); Platelet Count 301 K/mm3 (140-440); Red Cell Distribution Width 15.1 % (13.2-15.2)
--- NOTE | 2019-07-16 10:23 | Emergency Department Report ---
ED General Adult HPI - General Chief complaint: Dyspnea/Respdistress Stated complaint: LEGS/FEET SWELLING/PAIN/CHF/HBP Time Seen by Provider: 07/16/19 09:38 Source: patient Mode of arrival: Ambulatory Limitations: No Limitations - History of Present Illness Initial comments: This is a 54-year-old female with a past medical history of diabetes and congest sky heart failure who presents to ED complaining of swelling to the bilateral legs for the past week. Patient states that she does take medications for diabetes, hypertension and congestive heart failure. Patient states that the past me she is swelling and pain to her lower feet and ankles. Patient states that pain has gotten worse since swelling. Patient states that she came in to be evaluated today as her doctor told her to come to the ER. She is currently followed by casting supervisor out of [facility]. - Related Data Home Medications Medication Instructions Recorded Confirmed Last Taken Insulin Lispro [HumaLOG VIAL] 0 units SQ AC 10/23/16 02/14/19 Unknown Losartan 25 mg PO QDAY 02/14/19 02/14/19 Unknown Rosuvastatin (Nf) 40 mg PO QDAY 02/14/19 02/14/19 Unknown Xarelto 20 mg PO QAC 02/14/19 02/14/19 Unknown metFORMIN 1,000 mg PO QAC 02/14/19 02/14/19 Unknown Previous Rx's Medication Instructions Recorded Last Taken Type Cyclobenzaprine [Flexeril 10 MG 10 mg PO Q8H PRN #12 tablet 02/14/17 Unknown Rx TAB] Ibuprofen [Motrin 600 MG tab] 600 mg PO Q8H PRN #30 tablet 02/14/17 Unknown Rx Insulin Detemir [Levemir VIAL] 10 unit SQ QHS #1 vial 02/17/19 Unknown Rx Prednisone [predniSONE 10 mg 10 mg PO .TAPER #1 tab.ds.pk 04/19/19 Unknown Rx (6-Day Pack, 21 Tabs)] guaiFENesin/CODEINE [Robitussin AC] 10 ml PO TID PRN #100 ml 04/19/19 Unknown Rx levoFLOXacin [Levaquin TAB] 500 mg PO QDAY #7 tablet 04/19/19 Unknown Rx Furosemide [Lasix] 20 mg PO QDAY #20 tablet 07/16/19 Unknown Rx traMADoL [Ultram 50 MG tab] 50 mg PO Q6HR PRN #20 tablet 07/16/19 Unknown Rx Allergies Allergy/AdvReac Type Severity Reaction Status Date / Time lisinopril Allergy Itching Verified 02/14/19 01:03 oxycodone Allergy Itching Verified 02/14/19 01:03 ED Review of Systems ROS: Stated complaint: LEGS/FEET SWELLING/PAIN/CHF/HBP Other details as noted in HPI Comment: All other systems reviewed and negative ED Past Medical Hx - Past Medical History Previous Medical History?: Yes Hx Hypertension: Yes Hx Congestive Heart Failure: Yes Hx Diabetes: Yes Hx Asthma: Yes - Surgical History Past Surgical History?: Yes Hx Cholecystectomy: Yes Additional Surgical History: PDA REPAIR. X3. HERNIA REPAIR. ECTOPIC . HYSTERECTOMY - Social History Smoking Status: Never Smoker - Medications Home Medications: Home Medications Medication Instructions Recorded Confirmed Last Taken Type Insulin Lispro [HumaLOG VIAL] 0 units SQ AC 10/23/16 02/14/19 Unknown History Cyclobenzaprine [Flexeril 10 MG 10 mg PO Q8H PRN #12 tablet 02/14/17 02/14/19 Unknown Rx TAB] Ibuprofen [Motrin 600 MG tab] 600 mg PO Q8H PRN #30 tablet 02/14/17 02/14/19 Unknown Rx Losartan 25 mg PO QDAY 02/14/19 02/14/19 Unknown History Rosuvastatin (Nf) 40 mg PO QDAY 02/14/19 02/14/19 Unknown History Xarelto 20 mg PO QAC 02/14/19 02/14/19 Unknown History metFORMIN 1,000 mg PO QAC 02/14/19 02/14/19 Unknown History Insulin Detemir [Levemir VIAL] 10 unit SQ QHS #1 vial 02/17/19 02/14/19 Unknown Rx Prednisone [predniSONE 10 mg 10 mg PO .TAPER #1 tab.ds.pk 04/19/19 Unknown Rx (6-Day Pack, 21 Tabs)] guaiFENesin/CODEINE [Robitussin AC] 10 ml PO TID PRN #100 ml 04/19/19 Unknown Rx levoFLOXacin [Levaquin TAB] 500 mg PO QDAY #7 tablet 04/19/19 Unknown Rx Furosemide [Lasix] 20 mg PO QDAY #20 tablet 07/16/19 Unknown Rx traMADoL [Ultram 50 MG tab] 50 mg PO Q6HR PRN #20 tablet 07/16/19 Unknown Rx ED Physical Exam - General Limitations: No Limitations General appearance: alert, in no apparent distress - Head Head exam: Present: atraumatic, normocephalic - Eye Eye exam: Present: normal appearance - ENT ENT exam: Present: mucous membranes moist - Neck Neck exam: Present: normal inspection - Respiratory Respiratory exam: Present: normal lung sounds bilaterally. Absent: respiratory distress, rales, rhonchi, stridor, chest wall tenderness, accessory muscle use, decreased breath sounds - Cardiovascular Cardiovascular Exam: Present: regular rate, irregular rhythm. Absent: systolic murmur, diastolic murmur, rubs, gallop - GI/Abdominal GI/Abdominal exam: Present: soft, normal bowel sounds. Absent: distended, tenderness - Extremities Exam Extremities exam: Present: normal inspection, full ROM, tenderness (the patient had bilateral feet and ankle), pedal edema (1+pitting bilat), other. Absent: calf tenderness - Expanded Lower Extremity Exam Right Hip exam: Present: normal inspection, full ROM Upper Leg exam: Present: normal inspection, full ROM Knee exam: Present: normal inspection, full ROM Lower Leg exam: Present: full ROM. Absent: Marina's sign Ankle exam: Present: tenderness (to palpation of bilateral ankles). Absent: abrasion, laceration, ecchymosis, dislocation Foot/Toe exam: Present: normal inspection, full ROM, swelling (mild) Neuro vascular tendon exam: Present: no vascular compromise Gait: Positive: observed and normal - Back Exam Back exam: Present: normal inspection - Neurological Exam Neurological exam: Present: alert, oriented X3 - Psychiatric Psychiatric exam: Present: normal affect, normal mood - Skin Skin exam: Present: warm, dry, intact, normal color. Absent: rash ED Course Vital Signs 07/16/19 07/16/19 07/16/19 08:00 10:20 13:09 Temperature 97.9 F Pulse Rate 89 86 78 Respiratory 22 18 16 Rate Blood Pressure 177/91 Blood Pressure 190/96 158/106 [Left] O2 Sat by Pulse 96 100 100 Oximetry ED Medical Decision Making - Lab Data Result diagrams: 07/16/19 09:38 07/16/19 09:38 Laboratory Last Values WBC 7.7 K/mm3 (4.5-11.0) 07/16/19 09:38 RBC 4.10 M/mm3 (3.65-5.03) 07/16/19 09:38 Hgb 10.7 gm/dl (10.1-14.3) 07/16/19 09:38 Hct 32.7 % (30.3-42.9) 07/16/19 09:38 MCV 80 fl (79-97) 07/16/19 09:38 MCH 26 pg (28-32) L 07/16/19 09:38 MCHC 33 % (30-34) 07/16/19 09:38 RDW 15.1 % (13.2-15.2) 07/16/19 09:38 Plt Count 301 K/mm3 (140-440) 07/16/19 09:38 Sodium 139 mmol/L (137-145) 07/16/19 09:38 Potassium 4.6 mmol/L (3.6-5.0) 07/16/19 09:38 Chloride 103.5 mmol/L (98-107) 07/16/19 09:38 Carbon Dioxide 23 mmol/L (22-30) 07/16/19 09:38 Anion Gap 17 mmol/L 07/16/19 09:38 BUN 12 mg/dL (7-17) 07/16/19 09:38 Creatinine 0.8 mg/dL (0.7-1.2) 07/16/19 09:38 Estimated GFR > 60 ml/min 07/16/19 09:38 BUN/Creatinine Ratio 15 % 07/16/19 09:38 Glucose 185 mg/dL (65-100) H 07/16/19 09:38 Calcium 9.1 mg/dL (8.4-10.2) 07/16/19 09:38 NT-Pro-B Natriuret Pep 706.5 pg/mL (0-900) 07/16/19 09:38 Last Vital Signs Temp 97.9 F 07/16/19 08:00 Pulse 86 07/16/19 10:20 Resp 18 07/16/19 10:20 BP 190/96 07/16/19 10:20 Pulse Ox 100 07/16/19 10:20 - Radiology Data Radiology results: report reviewed, image reviewed INDICATION / CLINICAL INFORMATION: SOB, CHF hx. COMPARISON: Chest x-ray on 04/19/2019. FINDINGS: SUPPORT DEVICES: None. HEART / MEDIASTINUM: Mild cardiomegaly. LUNGS / PLEURA: There is mild bilateral interstitial prominence most likely reflecting mild interstitial edema. There is no focal consolidation or significant pleural effusion. No pneumoth orax. ADDITIONAL FINDINGS: No significant additional findings. IMPRESSION: 1. Probable mild interstitial pulmonary edema, new compared with 04/19/2019. Signer Name: Marcin Willams MD Signed: 07/16/2019 8:43 AM Workstation Name: [id number] - Medical Decision Making She is a 54-year-old female who presents with bilateral pedal pain and swelling. Labs and not indicated for congestive heart failure BNP is less than 900. Chest x-ray does show some pulmonary edema, mild She receives pain medication as well as Lasix for swelling. She is followed by casting supervisor Dr. Carlson. I discussed with patient to make sure she follows up with her casting supervisor. Patient also given cardiology referral. Patient will be going home on Lasix to help with swelling and pain medication. Patient is in no acute respiratory distress. Patient is satting at 98% room air, lungs sounds are clear. I discussed all findings with the patient. I discussed with the patient follows up and called the casting supervisor tomorrow. Patient understands instructions Critical Care Time: Yes Critical care time in (mins) excluding proc time.: 20 Critical care attestation.: If time is entered above; I have spent that time in minutes in the direct care of this critically ill patient, excluding procedure time. ED Disposition Clinical Impression: Pulmonary edema without heart failure, Bilateral leg pain Disposition: DC-01 TO HOME OR SELFCARE Is pt being admited?: No Does the pt Need Aspirin: No Condition: Stable Instructions: Pulmonary Edema (ED), Leg Edema (ED) Additional Instructions: The primary-care physician as soon as possible. Take medications as prescribed. Worsening symptoms to return to the ED. Prescriptions: Furosemide [Lasix] 20 mg PO QDAY #20 tablet traMADoL [Ultram 50 MG tab] 50 mg PO Q6HR PRN #20 tablet PRN Reason: Pain Referrals: [facility] [Other] - 3-5 Days YANIRA SANTIAGO MD [Staff Physician] - 3-5 Days [facility] [Provider Group] - 3-5 Days Forms: Accompanied Note, Work/School Release Form(ED) Time of Disposition: 12:54
[2019-07-16 10:26] LABS: BUN/Creatinine Ratio 15; Blood Urea Nitrogen 12 mg/dL (7-17); Calcium 9.1 mg/dL (8.4-10.2); Hemolysis Index 6
[2019-07-16] MEDS ORDERED: FUROSEMIDE 40 MG/4 ML INJ IV ONE (10:43)
[2019-07-16] MEDS ORDERED: MORPHINE 2 MG/1 ML INJ IV ONE (10:44)
[2019-07-16 13:10] VITALS: BP 158/106
== END 2019-07-16 13:10 | disposition home or self-care (01) ==
LOC: ED 07:55
DX: J81.0 Acute pulmonary edema (principal); I11.0 Hypertensive heart disease with heart failure; I50.9 Heart failure, unspecified; M79.604 Pain in right leg; M79.605 Pain in left leg; J45.909 Unspecified asthma, uncomplicated; E11.9 Type 2 diabetes mellitus without complications; Z79.4 Long term (current) use of insulin; Z79.899 Other long term (current) drug therapy; Z79.84 Long term (current) use of oral hypoglycemic drugs; Z79.1 Long term (current) use of non-steroidal anti-inflammatories (NSAID); Z88.5 Allergy status to narcotic agent
CPT/HCPCS: 36415; 71046; 80048; 83880; 85027; 93005; 93010; 96374; 96375; 99284; J1940; J2270

== ENCOUNTER 2020-08-05 18:27 | Observation (INO) | payer OTHER, MEDICARE ==
[2020-08-05] MEDS ORDERED: ASPIRIN 325 MG TAB PO ONE (19:52)
[2020-08-05 20:39] LABS: Basophils % (Auto) 0.3 % (0.0-1.8); Eosinophils # (Auto) 0.2 K/mm3 (0.0-0.4); Eosinophils % (Auto) 2.6 % (0.0-4.3); Hematocrit 33.8 % (30.3-42.9); Hemoglobin 10.7 gm/dl (10.1-14.3); Mean Corpuscular HGB Conc 32 % (30-34); Mean Corpuscular Volume 82 fl (79-97); Monocytes # (Auto) 0.7 K/mm3 (0.0-0.8); Monocytes % (Auto) 7.7 % (0.0-7.3); Platelet Count 346 K/mm3 (140-440); Red Cell Distribution Width 14.8 % (13.2-15.2)
--- NOTE | 2020-08-05 20:40 | XRay Report ---
CHEST 1 VIEW 08/05/2020 7:26 PM INDICATION / CLINICAL INFORMATION: Chest Pain. COMPARISON: 07/16/2019. FINDINGS: SUPPORT DEVICES: None. HEART / MEDIASTINUM: Stable mild cardiomegaly. LUNGS / PLEURA: No significant pulmonary or pleural abnormality. No pneumothorax. ADDITIONAL FINDINGS: No significant additional findings. IMPRESSION: Stable mild cardiomegaly. Signer Name: Douglas Guerra MD Signed: 08/05/2020 8:35 PM Workstation Name: [id number]
--- NOTE | 2020-08-05 20:50 | Emergency Department Report ---
ED Chest Pain HPI - General Chief Complaint: Chest Pain Stated Complaint: CHEST PAIN Time Seen by Provider: 08/05/20 20:21 Source: EMS Mode of arrival: Stretcher Limitations: No Limitations - History of Present Illness Initial Comments: 55-year-old female the past medical history of diabetes on insulin, pulmonary embolism in 2019 restarted on Xarelto this past May, CHF, hypertension, and asthma presents to the hospital complaints of nonproductive cough, shortness of breath, and left-sided sharp intermittent chest pain the last 2 to 3 days. T-ma x 99. Positive decreased appetite reported. Patient tolerating fluids but eating less food. She reports recent weight loss and complains of lower extremity swelling. Patient was admitted to [facility] in May for pneumonia and discharged with albuterol, Augmentin, and recently had her on her Xarelto. Covid test negative June 05. She admits to intermittent compliance with Xarelto. She denies loss of sense of taste or smell or known Covid exposure. - Related Data Home Medications Medication Instructions Recorded Confirmed Last Taken Insulin Lispro [HumaLOG VIAL] 0 units SQ AC 10/23/16 08/06/20 Unknown Losartan 25 mg PO QDAY 02/14/19 08/06/20 Unknown Gabapentin [Neurontin] 600 mg PO Q8H 08/06/20 08/06/20 Unknown Hydroxyzine HCl [hydrOXYzine] 50 mg PO BID 08/06/20 08/06/20 Unknown Meloxicam [Mobic] 15 mg PO DAILY 08/06/20 08/06/20 Unknown Pantoprazole Sodium 1 tab PO DAILY 08/06/20 08/06/20 Unknown Rivaroxaban [Xarelto] 20 mg PO QDAY 08/06/20 08/06/20 Unknown Topiramate [Topamax] 50 mg PO BID 08/06/20 08/06/20 Unknown Triamcinolone 0.1% [Kenalog 0.1% 1 applic TP TID 08/06/20 08/06/20 Unknown CREAM] Previous Rx's Medication Instructions Recorded Last Taken Type Insulin Detemir [Levemir VIAL] 10 unit SQ QHS #1 vial 02/17/19 Unknown Rx Allergies Allergy/AdvReac Type Severity Reaction Status Date / Time lisinopril Allergy Itching Verified 02/14/19 01:03 oxycodone Allergy Itching Verified 02/14/19 01:03 tramadol Allergy Itching Verified 08/05/20 20:52 ciprofloxacin [From Cipro] AdvReac Unknown Verified 08/05/20 20:51 rosuvastatin AdvReac Unknown Verified 08/05/20 20:52 Heart Score - HEART Score History: Slightly suspicious EKG: Non-specific Age: 45-65 Risk factors: > 3 risk factors or hx of atherosclerotic disease Troponin: < normal limit HEART Score: 4 ED Review of Systems ROS: Stated complaint: CHEST PAIN Other details as noted in HPI ED Past Medical Hx - Past Medical History Hx Hypertension: Yes Hx Congestive Heart Failure: Yes Hx Diabetes: Yes Hx Asthma: Yes - Surgical History Hx Cholecystectomy: Yes Additional Surgical History: PDA REPAIR. X3. HERNIA REPAIR. ECTOPIC . HYSTERECTOMY - Social History Smoking Status: Never Smoker Substance Use Type: None - Medications Home Medications: Home Medications Medication Instructions Recorded Confirmed Last Taken Type Insulin Lispro [HumaLOG VIAL] 0 units SQ AC 10/23/16 08/06/20 Unknown History Losartan 25 mg PO QDAY 02/14/19 08/06/20 Unknown History Insulin Detemir [Levemir VIAL] 10 unit SQ QHS #1 vial 02/17/19 08/06/20 Unknown Rx Gabapentin [Neurontin] 600 mg PO Q8H 08/06/20 08/06/20 Unknown History Hydroxyzine HCl [hydrOXYzine] 50 mg PO BID 08/06/20 08/06/20 Unknown History Meloxicam [Mobic] 15 mg PO DAILY 08/06/20 08/06/20 Unknown History Pantoprazole Sodium 1 tab PO DAILY 08/06/20 08/06/20 Unknown History Rivaroxaban [Xarelto] 20 mg PO QDAY 08/06/20 08/06/20 Unknown History Topiramate [Topamax] 50 mg PO BID 08/06/20 08/06/20 Unknown History Triamcinolone 0.1% [Kenalog 0.1% 1 applic TP TID 08/06/20 08/06/20 Unknown History CREAM] ED Physical Exam - General Limitations: No Limitations - Other Other exam information: General: No acute distress Head: Atraumatic Eyes: normal appearance ENT: Moist mucous membranes Neck: Normal appearance, no midline tenderness Chest: Clear to auscultation bilaterally, left chest wall nontender, no tachypnea CV: Regular rate and rhythm Abdomen: Soft, normal bowel sounds, nontender, nondistended, no rebound or guarding Back: Normal inspection Extremity: Normal inspection, full range of motion, no calf tenderness, only right ankle edema noted on exam without pitting and bilaterally. Neuro: Alert O x 3, no facial asymmetry, speech clear, no gross motor sensory deficit Psych: Appropriate behavior Skin: Chronic superficial bilateral skin ulcerations to distal lower extremities. No warmth or erythema ED Course Vital Signs 08/05/20 08/05/20 08/05/20 18:56 19:25 19:30 Temperature 98.8 F 97.6 F Pulse Rate 115 H 106 H 105 H Pulse Rate [ Bilateral] Respiratory 18 14 14 Rate Respiratory Rate [Bilateral ] Blood Pressure 171/92 141/83 Blood Pressure 147/101 [Left] O2 Sat by Pulse 99 99 96 Oximetry 08/05/20 08/05/20 08/05/20 20:00 20:30 21:05 Temperature Pulse Rate 104 H 105 H Pulse Rate [ 99 H Bilateral] Respiratory 19 18 Rate Respiratory 19 Rate [Bilateral ] Blood Pressure 141/83 149/88 Blood Pressure [Left] O2 Sat by Pulse 100 99 Oximetry 08/05/20 08/05/20 08/05/20 21:08 21:38 23:30 Temperature Pulse Rate Pulse Rate [ Bilateral] Respiratory 18 18 Rate Respiratory Rate [Bilateral ] Blood Pressure 143/69 Blood Pressure [Left] O2 Sat by Pulse 97 Oximetry 08/05/20 08/06/20 08/06/20 23:55 00:00 00:25 Temperature Pulse Rate 108 H Pulse Rate [ Bilateral] Respiratory 18 14 18 Rate Respiratory Rate [Bilateral ] Blood Pressure 106/67 Blood Pressure [Left] O2 Sat by Pulse 93 Oximetry 08/06/20 08/06/20 08/06/20 00:30 01:00 01:30 Temperature Pulse Rate 107 H 106 H 106 H Pulse Rate [ Bilateral] Respiratory 12 15 14 Rate Respiratory Rate [Bilateral ] Blood Pressure 116/74 118/65 122/60 Blood Pressure [Left] O2 Sat by Pulse 93 95 95 Oximetry 08/06/20 08/06/20 08/06/20 02:00 03:00 03:30 Temperature Pulse Rate 102 H 97 H Pulse Rate [ Bilateral] Respiratory 15 15 12 Rate Respiratory Rate [Bilateral ] Blood Pressure 118/67 134/86 113/74 Blood Pressure [Left] O2 Sat by Pulse 97 97 96 Oximetry CLAUDIA score - Claudia Score Age > 65: (0) No Aspirin use within the Past 7 Days: (0) No 3 or more CAD Risk Factors: (1) Yes 2 or more Angina events in past 24 hrs: (0) No Known CAD with more than 50% Stenosis: (0) No Elevated Cardiac Markers: (0) No ST Deviation Greater than 0.5mm: (0) No (1) CLAUDIA Score: 1 ED Medical Decision Making - Lab Data Result diagrams: 08/05/20 20:08 08/05/20 23:58 Lab Results 08/05/20 08/05/20 08/05/20 Range/Units 20:08 20:08 20:21 WBC 8.8 (4.5-11.0) K/mm3 RBC 4.10 (3.65-5.03) M/mm3 Hgb 10.7 (10.1-14.3) gm/dl Hct 33.8 (30.3-42.9) % MCV 82 (79-97) fl MCH 26 L (28-32) pg MCHC 32 (30-34) % RDW 14.8 (13.2-15.2) % Plt Count 346 (140-440) K/mm3 Lymph % (Auto) 23.0 (13.4-35.0) % Sabine % (Auto) 7.7 H (0.0-7.3) % Eos % (Auto) 2.6 (0.0-4.3) % Baso % (Auto) 0.3 (0.0-1.8) % Lymph # (Auto) 2.0 (1.2-5.4) K/mm3 Sabine # (Auto) 0.7 (0.0-0.8) K/mm3 Eos # (Auto) 0.2 (0.0-0.4) K/mm3 Baso # (Auto) 0.0 (0.0-0.1) K/mm3 Seg Neutrophils % 66.4 (40.0-70.0) % Seg Neutrophils # 5.8 (1.8-7.7) K/mm3 PT 13.4 (12.2-14.9) Sec. INR 1.03 (0.87-1.13) APTT (24.2-36.6) Sec. D-Dimer (0-234) ng/mlDDU Sodium 136 L (137-145) mmol/L Potassium 3.7 (3.6-5.0) mmol/L Chloride 102.5 (98-107) mmol/L Carbon Dioxide 24 (22-30) mmol/L Anion Gap 13 mmol/L BUN 19 H (7-17) mg/dL Creatinine 1.1 (0.6-1.2) mg/dL Estimated GFR > 60 ml/min BUN/Creatinine Ratio 17 % Glucose 539 H* (65-100) mg/dL Calcium 9.4 (8.4-10.2) mg/dL Troponin T < 0.010 (0.00-0.029) ng/mL 08/05/20 Range/Units 20:21 WBC (4.5-11.0) K/mm3 RBC (3.65-5.03) M/mm3 Hgb (10.1-14.3) gm/dl Hct (30.3-42.9) % MCV (79-97) fl MCH (28-32) pg MCHC (30-34) % RDW (13.2-15.2) % Plt Count (140-440) K/mm3 Lymph % (Auto) (13.4-35.0) % Sabine % (Auto) (0.0-7.3) % Eos % (Auto) (0.0-4.3) % Baso % (Auto) (0.0-1.8) % Lymph # (Auto) (1.2-5.4) K/mm3 Sabine # (Auto) (0.0-0.8) K/mm3 Eos # (Auto) (0.0-0.4) K/mm3 Baso # (Auto) (0.0-0.1) K/mm3 Seg Neutrophils % (40.0-70.0) % Seg Neutrophils # (1.8-7.7) K/mm3 PT (12.2-14.9) Sec. INR (0.87-1.13) APTT 35.1 (24.2-36.6) Sec. D-Dimer 304.08 H (0-234) ng/mlDDU Sodium (137-145) mmol/L Potassium (3.6-5.0) mmol/L Chloride (98-107) mmol/L Carbon Dioxide (22-30) mmol/L Anion Gap mmol/L BUN (7-17) mg/dL Creatinine (0.6-1.2) mg/dL Estimated GFR ml/min BUN/Creatinine Ratio % Glucose (65-100) mg/dL Calcium (8.4-10.2) mg/dL Troponin T (0.00-0.029) ng/mL - EKG Data -: EKG Interpreted by Me (Right bundle branch block, left anterior fascicular block) EKG shows normal: sinus rhythm, ST-T waves (No ST elevation MT) Rate: normal - EKG Data When compared to previous EKG there are: no significant change - Radiology Data Radiology results: report reviewed CHEST 1 VIEW 08/05/2020 7:26 PM INDICATION / CLINICAL INFORMATION: Chest Pain. COMPARISON: 07/16/2019. FINDINGS: SUPPORT DEVICES: None. HEART / MEDIASTINUM: Stable mild cardiomegaly. LUNGS / PLEURA: No significant pulmonary or pleural abnormality. No pneumothorax. ADDITIONAL FINDINGS: No significant additional findings. IMPRESSION: Stable mild cardiomegaly. CTA CHEST WITH IV CONTRAST INDICATION / CLINICAL INFORMATION: Pt has chest pain with S.O.B., Hx of a Pulmonary Embolism. TECHNIQUE: Axial CT images were obtained through the chest after injection of 100 mL Omnipaque 350 IV contrast. 3 plane MIP and/or 3D reconstructions were produced. All CT scans at this location are performed using CT dose reduction for ALARA by means of automated exposure control. COMPARISON: Chest radiograph same day FINDINGS: PULMONARY ARTERIES: No pulmonary emboli. THORACIC AORTA: No significant abnormality. HEART: No significant abnormality. CORONARY ARTERIES: No significant calcification. PLEURA: No pleural effusion. No pneumothorax. LYMPH NODES: No significant adenopathy. LUNGS: There is subtle hazy bilateral groundglass opacity with focal areas of sparing in a mosaic attenuation pattern. ADDITIONAL FINDINGS: None. UPPER ABDOMEN: No acute findings. SKELETAL STRUCTURES: No significant osseous abnormality. IMPRESSION: 1. No CT evidence for pulmonary embolism. 2. Subtle hazy bilateral groundglass opacity with mosaic attenuation, nonspecific but may be seen in the setting of small airway disease, though atypical or viral infection should also be considered. - Medical Decision Making 55-year-old female presents to the hospital planing of cough, shortness of breath, decreased appetite with intermittent. CT angiogram chest negative for pulmonary embolism but suggestive of infiltrate viral versus atypical pneumonia. Since patient has been admitted to the hospital within the last 90 days she will receive antibiotics for hospital-acquired pneumonia. Patient also received Decadron and bronchodilators. Covid test reordered. ID consult ordered. Patient did complain of intermittent left-sided sharp chest pain worse when she "does anything". EKG unchanged troponin negative times patient will be admitted to the hospital service for further treatment Critical Care Time: No Critical care attestation.: If time is entered above; I have spent that time in minutes in the direct care of this critically ill patient, excluding procedure time. ED Disposition Clinical Impression: Pneumonia, Hyperglycemia, SOB (shortness of breath), Chest pain, Chronic anticoagulation Disposition: OP ADMIT IP TO THIS HOSP Is pt being admited?: Yes Condition: Stable
[2020-08-05 20:54] LABS: BUN/Creatinine Ratio 17; Blood Urea Nitrogen 19 mg/dL (7-17); Calcium 9.4 mg/dL (8.4-10.2); Hemolysis Index 1
[2020-08-05] MEDS ORDERED: ONDANSETRON 4 MG/2 ML INJ IV ONE (20:54)
[2020-08-05] MEDS ORDERED: MORPHINE 4 MG/1 ML INJ IV ONE ×2 (20:54→23:37)
[2020-08-05 20:59] LABS: INR 1.03 (0.87-1.13)
[2020-08-05 21:03] LABS: Partial Thromboplastin Time 35.1 Sec. (24.2-36.6)
[2020-08-05] MEDS ORDERED: INSULIN REGULAR, HUMAN 100 UNIT/ML 3ML VIAL IV ONE (21:04)
[2020-08-05] MEDS ORDERED: IPRATROPIUM/ALBUTEROL SULFATE 3 ML AMPUL.NEB IH ONE (21:38)
[2020-08-05] MEDS ORDERED: INSULIN REGULAR, HUMAN 100 UNITS/1 ML ONE (22:00)
--- NOTE | 2020-08-05 22:37 | Cat Scan Report ---
CTA CHEST WITH IV CONTRAST INDICATION / CLINICAL INFORMATION: Pt has chest pain with S.O.B., Hx of a Pulmonary Embolism. TECHNIQUE: Axial CT images were obtained through the chest after injection of 100 mL Omnipaque 350 IV contrast. 3 plane MIP and/or 3D reconstructions were produced. All CT scans at this location are performed usin g CT dose reduction for ALARA by means of automated exposure control. COMPARISON: Chest radiograph same day FINDINGS: PULMONARY ARTERIES: No pulmonary emboli. THORACIC AORTA: No significant abnormality. HEART: No significant abnormality. CORONARY ARTERIES: No significant calcification. PLEURA: No pleural effusion. No pneumothorax. LYMPH NODES: No significant adenopathy. LUNGS: There is subtle hazy bilateral groundglass opacity with focal areas of sparing in a mosaic att enuation pattern. ADDITIONAL FINDINGS: None. UPPER ABDOMEN: No acute findings. SKELETAL STRUCTURES: No significant osseous abnormality. IMPRESSION: 1. No CT evidence for pulmonary embolism. 2. Subtle hazy bilateral groundglass opacity with mosaic attenuation, nonspecific but may be seen in the setting of small airway disease, though atypical or viral infection should also be considered. Signer Name: Nelli Coates MD Signed: 08/05/2020 10:32 PM Workstation Name: [id number]
[2020-08-05] MEDS ORDERED: dexAMETHasone 4 MG/ML VIAL IV ONE (22:43)
[2020-08-05] MEDS ORDERED: VANCOMYCIN 1,500 MG in SODIUM CHLORIDE 0.9% 500 ML 500 ML IV ONE (23:45)
[2020-08-05] MEDS ORDERED: VANCOMYCIN PHARMACY TO DOSE IV SCH (23:45)
[2020-08-06] MEDS: CEFEPIME/NS 2 GM/100 ML 2 GM/100 ML BAG IV SCH ×4 (01:00→21:33)
[2020-08-06 01:16] LABS: C-Reactive Protein 0.8 mg/dL (0.00-1.30)
[2020-08-06 01:57] LABS: Bilirubin,Urine NEG (Negative); Blood,Urine NEG (Negative); Color,Urine Yellow (Yellow); Protein,Urine <15 mg/dL mg/dL (Negative)
[2020-08-06] MEDS ORDERED: DEXTROSE 50% IN WATER (25GM) 50 ML SYRINGE IV PRN ×2 (03:09→03:41)
--- NOTE | 2020-08-06 03:25 | History and Physical Report ---
History of Present Illness Date of examination: 08/05/20 Date of admission: 08/05/20 23:20 Chief complaint: Cough Shortness of Breath History of present illness: 55-year-old female with known history of diabetes mellitus, hypertension, CHF, asthma, history of pulmonary embolism in 2019 on Xarelto presenting to the emergency room today complaining of cough, shortness of breath and intermittent chest pain over the past 2 to 3 days. Patient was recently admitted at [facility] in May for pneumonia and subsequently discharged home on antibiotics-Augmentin, and albuterol. She was also tested for COVID-19 on June 05 which turned out to be negative. She has not been quite compliant with her Xarelto. Patient denies any recent travel and no sick contacts. Work-up in the emergency room today reveals an elevated blood glucose in the 500s. Chest x-ray done today was negative. CT angiogram reveals: Subtle hazy bilateral groundglass opacity with mosaic attenuation, nonspecific but may be seen in the setting of small airway disease, though atypical or viral infection should also be considered. Patient has been admitted for possible hospital-acquired pneumonia and will also be ruled out for Covid. Past History Past Medical History: diabetes, heart failure, hypertension, hyperlipidemia, pulmonary embolism, other (H/O Asthma) Past Surgical History: No surgical history Social history: no significant social history Medications and Allergies Allergies Allergy/AdvReac Type Severity Reaction Status Date / Time lisinopril Allergy Itching Verified 02/14/19 01:03 oxycodone Allergy Itching Verified 02/14/19 01:03 tramadol Allergy Itching Verified 08/05/20 20:52 ciprofloxacin [From Cipro] AdvReac Unknown Verified 08/05/20 20:51 rosuvastatin AdvReac Unknown Verified 08/05/20 20:52 Home Medications Medication Instructions Recorded Confirmed Last Taken Type Insulin Lispro [HumaLOG VIAL] 0 units SQ AC 10/23/16 08/06/20 Unknown History Losartan 25 mg PO QDAY 02/14/19 08/06/20 Unknown History Insulin Detemir [Levemir VIAL] 10 unit SQ QHS #1 vial 02/17/19 08/06/20 Unknown Rx Gabapentin [Neurontin] 600 mg PO Q8H 08/06/20 08/06/20 Unknown History Hydroxyzine HCl [hydrOXYzine] 50 mg PO BID 08/06/20 08/06/20 Unknown History Meloxicam [Mobic] 15 mg PO DAILY 08/06/20 08/06/20 Unknown History Pantoprazole Sodium 1 tab PO DAILY 08/06/20 08/06/20 Unknown History Rivaroxaban [Xarelto] 20 mg PO QDAY 08/06/20 08/06/20 Unknown History Topiramate [Topamax] 50 mg PO BID 08/06/20 08/06/20 Unknown History Triamcinolone 0.1% [Kenalog 0.1% 1 applic TP TID 08/06/20 08/06/20 Unknown History CREAM] Active Meds: Active Medications Dextrose (D50w (25gm) Syringe) 50 ml IV Q30MIN PRN; Protocol PRN Reason: Hypoglycemia Cefepime HCl (Cefepime/Ns 2 Gm/100 Ml) 2 gm in 100 mls @ 200 mls/hr IV Q8HR [facility]; Protocol Last Admin: 08/06/20 01:00 Dose: 200 mls/hr Documented by: Insulin Human Lispro (Humalog) 0 unit SUB-Q ACHS [facility]; Protocol Review of Systems Constitutional: no fever, no chills Ears, nose, mouth and throat: no nasal congestion, no sore throat Cardiovascular: no chest pain, no palpitations Respiratory: cough, shortness of breath Gastrointestinal: no abdominal pain, no nausea, no vomiting Genitourinary Female: hematuria, no pelvic pain, no flank pain, no dysuria Musculoskeletal: no neck pain, no low back pain Integumentary: no rash, no pruritis Neurological: no headaches, no confusion Psychiatric: no anxiety, no depression Exam - Constitutional Vitals: Temp Pulse Resp BP Pulse Ox 97.6 F 102 H 15 134/86 97 08/05/20 19:25 08/06/20 03:00 08/06/20 03:00 08/06/20 03:00 08/06/20 03:00 General appearance: Present: no acute distress, well-nourished - EENT Eyes: Present: PERRL, EOM intact. Absent: scleral icterus ENT: hearing intact, clear oral mucosa, dentition normal - Neck Neck: Present: supple, normal ROM - Respiratory Respiratory effort: normal Respiratory: bilateral: diminished - Cardiovascular Rhythm: regular Heart Sounds: Present: S1 & S2. Absent: gallop, systolic murmur, diastolic murmur, rub - Extremities Extremities: no ischemia, pulses intact, pulses symmetrical, No edema, Full ROM Extremity abnormal: ulceration (Multiple areas of ulcers on right lower extremity) Peripheral Pulses: within normal limits - Abdominal General gastrointestinal: Present: soft, non-tender, non-distended, normal bowel sounds. Absent: mass - Integumentary Integumentary: Present: clear, warm, dry. Absent: rash - Musculoskeletal Musculoskeletal: strength equal bilaterally - Psychiatric Psychiatric: appropriate mood/affect, intact judgment & insight, memory intact, cooperative - Neurologic Neurologic: CNII-XII intact, no focal deficits, moves all extremities - Additional findings Additional findings: Multiple areas of open and healing ulcers over the abdomen. HEART Score - HEART Score EKG: Non-specific Age: 45-65 Risk factors: > 3 risk factors or hx of atherosclerotic disease Troponin: Troponin T < 0.010 ng/mL (0.00-0.029) 08/06/20 00:41 Troponin: < normal limit Results - Labs CBC & Chem 7: 08/05/20 20:08 08/05/20 23:58 Labs: Abnormal lab results 08/05/20 08/05/20 08/05/20 Range/Units 20:08 20:08 20:21 MCH 26 L (28-32) pg [place] % (Auto) 7.7 H (0.0-7.3) % D-Dimer 304.08 H (0-234) ng/mlDDU Sodium 136 L (137-145) mmol/L BUN 19 H (7-17) mg/dL Glucose 539 H* (65-100) mg/dL Ur Specific [place] (1.003-1.030) U Epithel Cells (Auto) (0-13.0) /HPF 08/05/20 08/05/20 Range/Units 23:58 Unknown MCH (28-32) pg [place] % (Auto) (0.0-7.3) % D-Dimer (0-234) ng/mlDDU Sodium (137-145) mmol/L BUN (7-17) mg/dL Glucose 177 H (65-100) mg/dL Ur Specific [place] > 1.059 H (1.003-1.030) U Epithel Cells (Auto) 15.0 H (0-13.0) /HPF Assessment and Plan - Patient Problems (1) Pneumonia Current Visit: Yes Status: Acute Plan to address problem: Patient placed on empiric IV antibiotics. We await culture results. (2) Hyperglycemia Current Visit: Yes Status: Acute Plan to address problem: Patient placed on sliding scale insulin. Will monitor Accu-Cheks accordingly. (3) DVT prophylaxis Current Visit: Yes Status: Acute Plan to address problem: Patient placed on subcutaneous heparin. (4) Full code status Current Visit: Yes Status: Acute
[2020-08-06] MEDS: INSULIN LISPRO 100 UNIT/ML VIAL 3 mL SUB-Q SCH ×5 (07:30→23:05)
--- NOTE | 2020-08-06 09:15 | Consultation ---
History of Present Illness - Reason for Consult Consult date: 08/06/20 COVID Requesting physician: JAY RAINEY - History of Present Illness 56 years old female with history of diabetes mellitus, hypertension, CHF, asthma, pulmonary embolism in 2019 on Xarelto, admitted on 08/05/2020 secondary to 3-day history of cough, generalized malaise, shortness of breath and inte rmittent chest pain. Of note, patient was admitted to [facility] in May 2020 found to have pneumonia treated with Augmentin and albuterol. She was tested for COVID-19 and was negative. On arrival, temperature 98.8, HR 115, RR 18, O2 sat 99%, BP 171/92. Initial D-dimer 304, ferritin 76, urinalysis negative. Glucose 539. CTA of the chest shows no pulmonary embolism, scattered bilateral groundglass opacities. Patient is currently on room air. Review of Systems: reviewed ED and H&P notes. Limited due to PPE conservation strategy Past History Past Medical History: diabetes, heart failure, hypertension, hyperlipidemia, pulmonary embolism, other (H/O Asthma) Past Surgical History: No surgical history Social history: no significant social history Medications and Allergies Allergies Allergy/AdvReac Type Severity Reaction Status Date / Time lisinopril Allergy Itching Verified 02/14/19 01:03 oxycodone Allergy Itching Verified 02/14/19 01:03 tramadol Allergy Itching Verified 08/05/20 20:52 ciprofloxacin [From Cipro] AdvReac Unknown Verified 08/05/20 20:51 rosuvastatin AdvReac Unknown Verified 08/05/20 20:52 Home Medications Medication Instructions Recorded Confirmed Last Taken Type Insulin Lispro [HumaLOG VIAL] 0 units SQ AC 10/23/16 08/06/20 Unknown History Losartan 25 mg PO QDAY 02/14/19 08/06/20 Unknown History Insulin Detemir [Levemir VIAL] 10 unit SQ QHS #1 vial 02/17/19 08/06/20 Unknown Rx Gabapentin [Neurontin] 600 mg PO Q8H 08/06/20 08/06/20 Unknown History Hydroxyzine HCl [hydrOXYzine] 50 mg PO BID 08/06/20 08/06/20 Unknown History Meloxicam [Mobic] 15 mg PO DAILY 08/06/20 08/06/20 Unknown History Pantoprazole Sodium 1 tab PO DAILY 08/06/20 08/06/20 Unknown History Rivaroxaban [Xarelto] 20 mg PO QDAY 08/06/20 08/06/20 Unknown History Topiramate [Topamax] 50 mg PO BID 08/06/20 08/06/20 Unknown History Triamcinolone 0.1% [Kenalog 0.1% 1 applic TP TID 08/06/20 08/06/20 Unknown History CREAM] Active Meds: Active Medications Dextrose (D50w (25gm) Syringe) 50 ml IV Q30MIN PRN; Protocol PRN Reason: Hypoglycemia Cefepime HCl (Cefepime/Ns 2 Gm/100 Ml) 2 gm in 100 mls @ 200 mls/hr IV Q8HR [facility]; Protocol Last Admin: 08/06/20 05:29 Dose: Not Given Documented by: Vancomycin HCl 1,250 mg/ (Sodium Chloride) 275 mls @ 166.667 mls/hr IV Q24H [facility] Insulin Human Lispro (Humalog) 0 unit SUB-Q ACHS [facility]; Protocol Physical Examination - Physical Exam Narrative exam: Physical Exam: reviewed ED and hospitalist notes, limited due to conservation of PPE and decrease risk of transmission. General appearance: limited due to conservation of PPE Eyes: limited due to conservation of PPE HENT: Atraumatic; limited due to conservation of PPE Lungs: limited due to conservation of PPE CV: limited due to conservation of PPE Abdomen: limited due to conservation of PPE Extremities: limited due to conservation of PPE Skin: limited due to conservation of PPE Psych: limited due to conservation of PPE Neuro: limited due to conservation of PPE - Constitutional Vitals: Vital Signs Temp Pulse Resp BP Pulse Ox 97.6 F 97 H 12 113/74 96 08/05/20 19:25 08/06/20 03:30 08/06/20 03:30 08/06/20 03:30 08/06/20 03:30 Temperature -Last 24 Hours Temperature 97.6 F Temperature 98.8 F Results - Labs CBC & Chem 7: 08/05/20 20:08 08/05/20 23:58 Labs: Abnormal lab results 08/05/20 08/05/20 08/05/20 Range/Units 20:08 20:08 20:21 MCH 26 L (28-32) pg [place] % (Auto) 7.7 H (0.0-7.3) % D-Dimer 304.08 H (0-234) ng/mlDDU Sodium 136 L (137-145) mmol/L BUN 19 H (7-17) mg/dL Glucose 539 H* (65-100) mg/dL Ur Specific [place] (1.003-1.030) U Epithel Cells (Auto) (0-13.0) /HPF 08/05/20 08/05/20 Range/Units 23:58 Unknown MCH (28-32) pg [place] % (Auto) (0.0-7.3) % D-Dimer (0-234) ng/mlDDU Sodium (137-145) mmol/L BUN (7-17) mg/dL Glucose 177 H (65-100) mg/dL Ur Specific [place] > 1.059 H (1.003-1.030) U Epithel Cells (Auto) 15.0 H (0-13.0) /HPF Assessment and Plan Cultures: Blood culture pending SARS CoV2 PCR pending Assessment: 56 years old female with history of diabetes mellitus, hypertension, CHF, asthma, pulmonary embolism in 2019 on Xarelto, recent pneumonia treated daily in May 2020, admitted on 08/05/2020 secondary to 3-day history of cough, generalized malaise, shortness of breath and intermittent chest pain: #Bilateral pneumonia: Unclear etiology, of hospital-acquired pneumonia versus COVID-19 pneumonia. Inflammatory markers for COVID-19 are normal. Patient is on room air. #Diabetes mellitus with hyperglycemia. Recommendations: -Obtain procalcitonin -Obtain exercise pulse oximeter -Continue cefepime IV for now -Continue vancomycin IV for now -Obtain MRSA PCR -Follow-up SARS-CoV-2 PCR All laboratory, cultures and imaging were reviewed. Will follow Arpita Gan MD Infectious Diseases [employer] Instructor [facility] ([facility]) M [phone] O [phone]
[2020-08-06] MEDS: HYDROcodone/ACETAMINOPHEN 5-325 MG TAB PO PRN ×2 (13:03→17:44)
[2020-08-06] MEDS: VANCOMYCIN/NS 1 GM/250 ML 1 GM/250 ML BAG IV SCH (21:34)
[2020-08-07] MEDS ORDERED: VANCOMYCIN 1,250 MG in SODIUM CHLORIDE 0.9% 250ML 250 ML IV SCH (02:00)
[2020-08-07] MEDS: CEFEPIME/NS 2 GM/100 ML 2 GM/100 ML BAG IV SCH ×3 (05:11→22:35)
--- NOTE | 2020-08-07 08:31 | Progress Note ---
Assessment and Plan Cultures: Blood culture no growth today SARS CoV2 PCR negative? Lab alert repeat test Assessment: 56 years old female with history of diabetes mellitus, hypertension, CHF, asthma, pulmonary embolism in 2019 on Xarelto, recent pneumonia treated daily in May 2020, admitted on 08/05/2020 secondary to 3-day history of cough, generalized malaise, shortness of breath and intermittent chest pain: #Bilateral pneumonia: Unclear etiology, of hospital-acquired pneumonia versus COVID-19 pneumonia. SARS-CoV-2 PCR negative however lab alerted to repeat test ? False negative. Inflammatory markers for COVID-19 are normal. Patient is on room air. Procalcitonin normal. #Diabetes mellitus with hyperglycemia. #Multiple skin ulceration of unclear etiology: Multiple ulcerations in the abdominal wall not infected. Multiple scattered ulceration on the right lower extremity. #Left anterior thigh small ulceration with possible cellulitis. Recommendations: -Repeat SARS-CoV-2 PCR -requested per lab-order placed -Obtain exercise pulse oximeter -Continue cefepime IV for now D2 of 5 -Continue vancomycin IV for now D2 of 5 -Obtain MRSA PCR -pending -Continue wound care All laboratory, cultures and imaging were reviewed. Will follow Arpita Gan MD Infectious Diseases Supervisor [employer] [facility] ([facility]) M [phone] O [phone] Subjective Date of service: 08/07/20 Principal diagnosis: Jerman pneumonia Interval history: Patient remains on room air Objective - Exam Narrative Exam: Physical Exam: reviewed ED and hospitalist notes, limited due to conservation of PPE and decrease risk of transmission. General appearance: limited due to conservation of PPE Eyes: limited due to conservation of PPE HENT: Atraumatic; limited due to conservation of PPE Lungs: limited due to conservation of PPE CV: limited due to conservation of PPE Abdomen: limited due to conservation of PPE Extremities: limited due to conservation of PPE Skin: limited due to conservation of PPE Psych: limited due to conservation of PPE Neuro: limited due to conservation of PPE - Constitutional Vitals: Vital Signs Temp Pulse Resp BP Pulse Ox 98.2 F 94 H 18 151/65 98 08/07/20 03:21 08/07/20 03:21 08/07/20 03:21 08/07/20 03:21 08/07/20 03:21 Temperature -Last 24 Hours Temperature 98.2 F Temperature 98.2 F Temperature 98.2 F Temperature 97.5 F - Labs CBC & Chem 7: 08/05/20 20:08 08/05/20 23:58 Labs: Abnormal lab results 08/06/20 08/06/20 08/06/20 Range/Units 09:37 12:26 16:23 POC Glucose 440 H 377 H 289 H (70-105) mg/dL 08/06/20 Range/Units 22:40 POC Glucose 344 H (70-105) mg/dL
[2020-08-07] MEDS: INSULIN LISPRO 100 UNIT/ML VIAL 3 mL SUB-Q SCH ×4 (09:30→23:14)
[2020-08-07] MEDS: HYDROcodone/ACETAMINOPHEN 5-325 MG TAB PO PRN ×3 (12:08→22:35)
[2020-08-07 15:17] LABS: BUN/Creatinine Ratio 20; Blood Urea Nitrogen 18 mg/dL (7-17); Calcium 9.1 mg/dL (8.4-10.2); Hemolysis Index 7
[2020-08-07] MEDS: VANCOMYCIN/NS 1 GM/250 ML 1 GM/250 ML BAG IV SCH (15:22)
--- NOTE | 2020-08-07 21:01 | Progress Note ---
Assessment and Plan - Patient Problems (1) Debility Current Visit: Yes Status: Acute Plan to address problem: Outpatient physical therapy, supportive care, home health. (2) Hyperglycemia Current Visit: Yes Status: Acute Plan to address problem: Sliding-scale insulin therapy, Accu-Chek, hypoglycemia protocol, consistent carbohydrate diet (3) Pneumonia Current Visit: Yes Status: Acute Plan to address problem: Pneumonia protocol, IV antibiotic therapy, supportive care, supplemental oxygen, home oxygen evaluation in a.m. (4) DVT prophylaxis Current Visit: Yes Status: Acute Plan to address problem: SCD to bilateral lower extremities while in bed, prophylactic anticoagulation History Interval history: 55 YO Female HD #2 with Pneumonia, DM, Debility. Patient resting comfortably in bed. Patient states that she feels somewhat better today but still feels short of breath. No reported nursing events. Patient denies pain. Discharge planning in a.m. Hospitalist Physical - Constitutional Vitals: Temp Pulse Resp BP Pulse Ox 98.4 F 94 H 20 132/76 100 08/07/20 17:36 08/07/20 17:36 08/07/20 17:36 08/07/20 17:36 08/07/20 17:36 General appearance: Present: no acute distress, well-nourished - EENT Eyes: Present: PERRL, EOM intact - Neck Neck: Present: supple - Respiratory Respiratory effort: labored Respiratory: bilateral: diminished, rhonchi - Cardiovascular Rhythm: regular Heart Sounds: Present: S1 & S2 - Extremities Extremities: no ischemia Peripheral Pulses: within normal limits - Abdominal General gastrointestinal: soft, non-tender, non-distended - Integumentary Integumentary: Present: clear, dry - Psychiatric Psychiatric: appropriate mood/affect, cooperative - Neurologic Neurologic: CNII-XII intact HEART Score - HEART Score EKG: Non-specific Age: 45-65 Risk factors: > 3 risk factors or hx of atherosclerotic disease Troponin: Troponin T < 0.010 ng/mL (0.00-0.029) 08/06/20 00:41 Troponin: < normal limit Results - Labs CBC & Chem 7: 08/05/20 20:08 08/07/20 14:12 Labs: Laboratory Last Values WBC 8.8 K/mm3 (4.5-11.0) 08/05/20 20:08 RBC 4.10 M/mm3 (3.65-5.03) 08/05/20 20:08 Hgb 10.7 gm/dl (10.1-14.3) 08/05/20 20:08 Hct 33.8 % (30.3-42.9) 08/05/20 20:08 MCV 82 fl (79-97) 08/05/20 20:08 MCH 26 pg (28-32) L 08/05/20 20: MCHC 32 % (30-34) 08/05/20 20:08 RDW 14.8 % (13.2-15.2) 08/05/20 20:08 Plt Count 346 K/mm3 (140-440) 08/05/20 20:08 Lymph % (Auto) 23.0 % (13.4-35.0) 08/05/20 20:08 [place] % (Auto) 7.7 % (0.0-7.3) H 08/05/20 20:08 Eos % (Auto) 2.6 % (0.0-4.3) 08/05/20 20:08 Baso % (Auto) 0.3 % (0.0-1.8) 08/05/20 20:08 Lymph # (Auto) 2.0 K/mm3 (1.2-5.4) 08/05/20 20:08 [place] # (Auto) 0.7 K/mm3 (0.0-0.8) 08/05/20 20:08 Eos # (Auto) 0.2 K/mm3 (0.0-0.4) 08/05/20 20:08 Baso # (Auto) 0.0 K/mm3 (0.0-0.1) 08/05/20 20:08 Seg Neutrophils % 66.4 % (40.0-70.0) 08/05/20 20: Seg Neutrophils # 5.8 K/mm3 (1.8-7.7) 08/05/20 20:08 PT 13.4 Sec. (12.2-14.9) 08/05/20 20:21 INR 1.03 (0.87-1.13) 08/05/20 20:21 APTT 35.1 Sec. (24.2-36.6) 08/05/20 20: D-Dimer 304.08 ng/mlDDU (0-234) H 08/05/20 20:21 Sodium 140 mmol/L (137-145) 08/07/20 14:12 Potassium 3.7 mmol/L (3.6-5.0) 08/07/20 14:12 Chloride 108.6 mmol/L (98-107) H 08/07/20 14:12 Carbon Dioxide 21 mmol/L (22-30) L 08/07/20 14:12 Anion Gap 14 mmol/L 08/07/20 14:12 BUN 18 mg/dL (7-17) H 08/07/20 14:12 Creatinine 0.9 mg/dL (0.6-1.2) 08/07/20 14:12 Estimated GFR > 60 ml/min 08/07/20 14:12 BUN/Creatinine Ratio 20 % 08/07/20 14:12 Glucose 227 mg/dL (65-100) H 08/07/20 14:12 POC Glucose 268 mg/dL (70-105) H 08/07/20 15:59 Calcium 9.1 mg/dL (8.4-10.2) 08/07/20 14:12 Ferritin 76.1 ng/mL (10.0-200.0) 08/05/20 23:58 Lactate Dehydrogenase 148 units/L (91-180) 08/05/20 23:58 Troponin T < 0.010 ng/mL (0.00-0.029) 08/06/20 00:41 C-Reactive Protein 0.80 mg/dL (0.00-1.30) 08/05/20 23:58 Procalcitonin < 0.05 ng/mL (<0.15) 08/05/20 23:58 Urine Color Yellow (Yellow) 08/05/20 Unknown Urine Turbidity Clear (Clear) 08/05/20 Unknown Urine pH 5.0 (5.0-7.0) 08/05/20 Unknown Ur Specific [place] > 1.059 (1.003-1.030) H 08/05/20 Unknown Urine Protein <15 mg/dl mg/dL (Negative) 08/05/20 Unknown Urine Glucose (UA) >=500 mg/dL (Negative) 08/05/20 Unknown Urine Ketones Neg mg/dL (Negative) 08/05/20 Unknown Urine Blood Neg (Negative) 08/05/20 Unknown Urine Nitrite Neg (Negative) 08/05/20 Unknown Urine Bilirubin Neg (Negative) 08/05/20 Unknown Urine Urobilinogen 2.0 mg/dL (<2.0) 08/05/20 Unknown Ur Leukocyte Esterase Neg (Negative) 08/05/20 Unknown Urine WBC (Auto) 3.0 /HPF (0.0-6.0) 08/05/20 Unknown Urine RBC (Auto) 1.0 /HPF (0.0-6.0) 08/05/20 Unknown U Epithel Cells (Auto) 15.0 /HPF (0-13.0) H 08/05/20 Unknown Coronavirus (PCR) Negative (Negative) 08/06/20 09:46 Microbiology: Microbiology 08/05/20 23:58 Peripheral/Venous Blood Culture - Preliminary NO GROWTH AFTER 24 HOURS 08/06/20 00:41 Peripheral/Venous Blood Culture - Preliminary NO GROWTH AFTER 24 HOURS [place]/IV: Voiding Method Toilet IV Catheter Type [Right INT / Saline Lock Forearm] Active Medications - Current Medications Current Medications: Generic Name Dose Route Start Last Admin Trade Name Freq PRN Reason Stop Dose Admin Hydrocodone Bitart/Acetaminophen 1 each 08/06/20 12:31 08/07/20 18:05 [place] 5/325 PO 1 each Q4H PRN Administration Pain, Moderate (4-6) Dextrose 50 ml 08/06/20 03:41 D50w (25gm) Syringe IV Q30MIN PRN Hypoglycemia Protocol Cefepime HCl 2 gm in 100 mls @ 200 mls/hr 08/05/20 23:45 08/07/20 15:22 Cefepime/Ns 2 Gm/100 Ml IV 08/10/20 14:29 200 mls/hr Q8HR [facility] Administration Protocol Vancomycin HCl 1 gm in 250 mls @ 167.007 mls/hr 08/06/20 20:00 08/07/20 15:22 Vancomycin/Ns 1 Gm/250 Ml IV 167.007 mls/hr Q18H [facility] Administration Insulin Human Lispro 0 unit 08/06/20 07:30 08/07/20 18:02 Humalog SUB-Q 4 unit ACHS [facility] Administration Protocol Nutrition/Malnutrition Assess - Dietary Evaluation Nutrition/Malnutrition Findings: Nutrition Notes Start: 08/06/20 14:25 Freq: Status: Active Protocol: Document 12/09/20 12:53 CW (Rec: 08/07/20 13:10 CW [email or web address]) Co-Sign 08/07/20 12:53 MK Nutrition Notes Need for Assessment generated from: Education Initial or Follow up Reassessment Current Diagnosis Diabetes,Hypertension,Heart Failure Other Pertinent Diagnosis Encephalopathy, Pneumonia, wound, asthma, hyperglycemia Current Diet Cardiac/Consistent CHO Labs/Tests reviewed Pertinent Medications reviewed Height 5 ft 5 in Weight 74.387 kg Usual Body Weight 89.81 kg [place] Body Weight (kg) 56.81 BMI 27.3 Weight change and time frame Weight loss of 21% over one year (94.347 kg on 07/16/19-) Weight Status Overweight Subjective/Other Information Consult for diet education. Pt reports UBW of 89.81kg and wt loss over an unknown time. Pt reports decreased appetite and eating <25% of meals today . Per RN, pt ate 100% breakfast and lunch yesterday. Pt is open to double protein portions for wound healing. Pt ONS preferences recorded. Pt received low sodium diet handout. Percent of energy/protein needs met: 43%/32% Burn Absent Trauma Absent GI Symptoms None Current % PO Poor (25-49%) Minimum of two criteria No physical signs of malnutrition #3 Nutrition Diagnosis Increased nutrient needs ( specify in comment below) Comments: protein Etiology wound healing As Evidenced by Signs and Symptoms L thigh, R leg, abd wounds #2 Nutrition Diagnosis Food and nutrition-related knowledge deficit Etiology DM and HTN As Evidenced by Signs and Symptoms Pt asks questions about low sodium diet #1 Nutrition Diagnosis Inadequate oral intake Etiology SOB and chest pain As Evidenced by Signs and Symptoms Pt consuming 25%-49% PO Is patient on ventilator? No Is Patient Ambulatory and/or Out of Bed No REE-([facility]-confined to bed) 1956.176 Calculation Used for Recommendations [facility] Additional Notes Protein needs: 1.25-1.5g/kg ( 92-111g/day) Fluid: 1ml/kcal Nutrition Intervention Change Diet Order: continue Add Supplement/Snack (indicate name/kcal Glucerna BID /protein ) Provides kCal: 440 Provides Protein (gm) 20 Teaching Recipient Patient Learning Readiness Good Teaching Methods Discussion,Handout Response to Teaching Verbalize understanding Education Handouts Provided AND Low Sodium AND DM Barriers to Learning No Barriers RD phone number provided No Patient aware of follow up options Yes Goal #1 Meet 80% protein and energy needs via PO/ONS Goal #2 Wound healing Goal #3 Wt gain/ maintence Anticipated Discharge Needs: Cardiac/ consistent CHO Follow-Up By: 08/09/20 Additional Comments FU intakes, wt
[2020-08-07 23:17] VITALS: BP 123/77
[2020-08-08] MEDS: CEFEPIME/NS 2 GM/100 ML 2 GM/100 ML BAG IV SCH (07:10)
[2020-08-08] MEDS: VANCOMYCIN/NS 1 GM/250 ML 1 GM/250 ML BAG IV SCH (08:17)
[2020-08-08] MEDS: INSULIN LISPRO 100 UNIT/ML VIAL 3 mL SUB-Q SCH ×2 (08:19→13:06)
--- NOTE | 2020-08-08 10:00 | Progress Note ---
Assessment and Plan Cultures: Blood culture no growth today SARS CoV2 PCR negative? Lab alert repeat test Assessment: 56 years old female with history of diabetes mellitus, hypertension, CHF, asthma, pulmonary embolism in 2019 on Xarelto, recent pneumonia treated daily in May 2020, admitted on 08/05/2020 secondary to 3-day history of cough, generalized malaise, shortness of breath and intermittent chest pain: #Bilateral pneumonia: Unclear etiology, of hospital-acquired pneumonia versus COVID-19 pneumonia. SARS-CoV-2 PCR negative however lab alerted to repeat test ? False negative. Inflammatory markers for COVID-19 are normal. Patient is on room air. Procalcitonin normal. #Diabetes mellitus with hyperglycemia. #Multiple skin ulceration of unclear etiology: Multiple ulcerations in the abdominal wall not infected. Multiple scattered ulceration on the right lower extremity. #Left anterior thigh small ulceration with possible cellulitis. Recommendations: -Repeat SARS-CoV-2 PCR -requested per lab-order placed PENDING -Obtain exercise pulse oximeter- 6 MIN WALKING TEST PENDING -Continue cefepime IV for now D2 of 5 -Continue vancomycin IV for now D2 of 5 -Obtain MRSA PCR -pending -Continue wound care Will follow Arpita Gan MD Infectious Diseases [employer] [facility], [place], [facility]ated [facility] ([facility]) M [phone] O [phone] Subjective Date of service: 08/08/20 Principal diagnosis: Jerman pneumonia Interval history: Patient remains on room air, no fever Objective - Exam Narrative Exam: Physical Exam: reviewed ED and hospitalist notes, limited due to conservation of PPE and decrease risk of transmission. General appearance: limited due to conservation of PPE Eyes: limited due to conservation of PPE HENT: Atraumatic; limited due to conservation of PPE Lungs: limited due to conservation of PPE CV: limited due to conservation of PPE Abdomen: limited due to conservation of PPE Extremities: limited due to conservation of PPE Skin: limited due to conservation of PPE Psych: limited due to conservation of PPE Neuro: limited due to conservation of PPE - Constitutional Vitals: Vital Signs Temp Pulse Resp BP Pulse Ox 98.0 F 93 H 20 123/77 96 08/07/20 23:12 08/07/20 23:12 08/07/20 23:12 08/07/20 23:12 08/07/20 23:12 Temperature -Last 24 Hours Temperature 98.0 F Temperature 98.4 F Temperature 98.6 F - Labs CBC & Chem 7: 08/05/20 20:08 08/07/20 14:12 Labs: Abnormal lab results 08/07/20 08/07/20 08/07/20 Range/Units 11:36 14:12 15:59 Chloride 108.6 H (98-107) mmol/L Carbon Dioxide 21 L (22-30) mmol/L BUN 18 H (7-17) mg/dL Glucose 227 H (65-100) mg/dL POC Glucose 231 H 268 H (70-105) mg/dL 08/07/20 08/08/20 Range/Units 23:10 07:50 Chloride (98-107) mmol/L Carbon Dioxide (22-30) mmol/L BUN (7-17) mg/dL Glucose (65-100) mg/dL POC Glucose 289 H 277 H (70-105) mg/dL
[2020-08-08] MEDS: HYDROcodone/ACETAMINOPHEN 5-325 MG TAB PO PRN (12:20)
--- NOTE | 2020-08-08 13:46 | Progress Note ---
Assessment and Plan - Patient Problems (1) Pneumonia Current Visit: Yes Status: Acute Plan to address problem: Pneumonia protocol, IV antibiotic therapy, supportive care, supplemental oxygen, home oxygen evaluation in a.m. (2) Debility Current Visit: Yes Status: Acute Plan to address problem: Outpatient physical therapy, supportive care, home health. (3) Hyperglycemia Current Visit: Yes Status: Acute Plan to address problem: Sliding-scale insulin therapy, Accu-Chek, hypoglycemia protocol, consistent carbohydrate diet (4) DVT prophylaxis Current Visit: Yes Status: Acute Plan to address problem: SCD to bilateral lower extremities while in bed, prophylactic anticoagulation History Interval history: 55 YO Female with Pneumonia, DM, Debility. Patient resting comfortably in bed. Patient states that she feels somewhat better today but still feels short of breath. No reported nursing events. Patient denies pain. Hospitalist Physical - Constitutional Vitals: Temp Pulse Resp BP Pulse Ox 98.0 F 93 H 20 123/77 96 08/07/20 23:12 08/07/20 23:12 08/07/20 23:12 08/07/20 23:12 08/07/20 23:12 General appearance: Present: no acute distress, well-nourished - EENT Eyes: Present: PERRL, EOM intact ENT: hearing intact - Respiratory Respiratory effort: normal Respiratory: bilateral: diminished - Cardiovascular Rhythm: regular Heart Sounds: Present: S1 & S2 - Extremities Extremities: no ischemia Peripheral Pulses: within normal limits - Abdominal General gastrointestinal: soft, non-tender, non-distended - Integumentary Integumentary: Present: clear, dry - Psychiatric Psychiatric: appropriate mood/affect, cooperative - Neurologic Neurologic: CNII-XII intact HEART Score - HEART Score EKG: Non-specific Age: 45-65 Risk factors: > 3 risk factors or hx of atherosclerotic disease Troponin: Troponin T < 0.010 ng/mL (0.00-0.029) 08/06/20 00:41 Troponin: < normal limit Results - Labs CBC & Chem 7: 08/05/20 20:08 08/07/20 14:12 Labs: Laboratory Last Values WBC 8.8 K/mm3 (4.5-11.0) 08/05/20 20:08 RBC 4.10 M/mm3 (3.65-5.03) 08/05/20 20:08 Hgb 10.7 gm/dl (10.1-14.3) 08/05/20 20:08 Hct 33.8 % (30.3-42.9) 08/05/20 20:08 MCV 82 fl (79-97) 08/05/20 20:08 MCH 26 pg (28-32) L 08/05/20 20:08 MCHC 32 % (30-34) 08/05/20 20:08 RDW 14.8 % (13.2-15.2) 08/05/20 20:08 Plt Count 346 K/mm3 (140-440) 08/05/20 20:08 Lymph % (Auto) 23.0 % (13.4-35.0) 08/05/20 20:08 Wheeler % (Auto) 7.7 % (0.0-7.3) H 08/05/20 20:08 Eos % (Auto) 2.6 % (0.0-4.3) 08/05/20 20:08 Baso % (Auto) 0.3 % (0.0-1.8) 08/05/20 20:08 Lymph # (Auto) 2.0 K/mm3 (1.2-5.4) 08/05/20 20:08 Wheeler # (Auto) 0.7 K/mm3 (0.0-0.8) 08/05/20 20:08 Eos # (Auto) 0.2 K/mm3 (0.0-0.4) 08/05/20 20:08 Baso # (Auto) 0.0 K/mm3 (0.0-0.1) 08/05/20 20:08 Seg Neutrophils % 66.4 % (40.0-70.0) 08/05/20 20:08 Seg Neutrophils # 5.8 K/mm3 (1.8-7.7) 08/05/20 20:08 PT 13.4 Sec. (12.2-14.9) 08/05/20 20: INR 1.03 (0.87-1.13) 08/05/20 20:21 APTT 35.1 Sec. (24.2-36.6) 08/05/20 20:21 D-Dimer 304.08 ng/mlDDU (0-234) H 08/05/20 20:21 Sodium 140 mmol/L (137-145) 08/07/20 14:12 Potassium 3.7 mmol/L (3.6-5.0) 08/07/20 14:12 Chloride 108.6 mmol/L (98-107) H 08/07/20 14:12 Carbon Dioxide 21 mmol/L (22-30) L 08/07/20 14:12 Anion Gap 14 mmol/L 08/07/20 14:12 BUN 18 mg/dL (7-17) H 08/07/20 14:12 Creatinine 0.9 mg/dL (0.6-1.2) 08/07/20 14:12 Estimated GFR > 60 ml/min 08/07/20 14:12 BUN/Creatinine Ratio 20 % 08/07/20 14:12 Glucose 227 mg/dL (65-100) H 08/07/20 14:12 POC Glucose 285 mg/dL (70-105) H 08/08/20 12:22 Calcium 9.1 mg/dL (8.4-10.2) 08/07/20 14:12 Ferritin 76.1 ng/mL (10.0-200.0) 08/05/20 23:58 Lactate Dehydrogenase 148 units/L (91-180) 08/05/20 23:58 Troponin T < 0.010 ng/mL (0.00-0.029) 08/06/20 00:41 C-Reactive Protein 0.80 mg/dL (0.00-1.30) 08/05/20 23:58 Procalcitonin < 0.05 ng/mL (<0.15) 08/05/20 23:58 Urine Color Yellow (Yellow) 08/05/20 Unknown Urine Turbidity Clear (Clear) 08/05/20 Unknown Urine pH 5.0 (5.0-7.0) 08/05/20 Unknown Ur Specific [place] > 1.059 (1.003-1.030) H 08/05/20 Unknown Urine Protein <15 mg/dl mg/dL (Negative) 08/05/20 Unknown Urine Glucose (UA) >=500 mg/dL (Negative) 08/05/20 Unknown Urine Ketones Neg mg/dL (Negative) 08/05/20 Unknown Urine Blood Neg (Negative) 08/05/20 Unknown Urine Nitrite Neg (Negative) 08/05/20 Unknown Urine Bilirubin Neg (Negative) 08/05/20 Unknown Urine Urobilinogen 2.0 mg/dL (<2.0) 08/05/20 Unknown Ur Leukocyte Esterase Neg (Negative) 08/05/20 Unknown Urine WBC (Auto) 3.0 /HPF (0.0-6.0) 08/05/20 Unknown Urine RBC (Auto) 1.0 /HPF (0.0-6.0) 08/05/20 Unknown U Epithel Cells (Auto) 15.0 /HPF (0-13.0) H 08/05/20 Unknown Vancomycin Trough 15.0 ug/mL (5.0-20.0) 08/08/20 05:08 Coronavirus (PCR) Negative (Negative) 08/06/20 09:46 Microbiology: Microbiology 08/05/20 23:58 Peripheral/Venous Blood Culture - Preliminary NO GROWTH AFTER 48 HOURS 08/06/20 00:41 Peripheral/Venous Blood Culture - Preliminary NO GROWTH AFTER 48 HOURS [place]/IV: Voiding Method Toilet IV Catheter Type [Right INT / Saline Lock Forearm] Active Medications - Current Medications Current Medications: Generic Name Dose Route Start Last Admin Trade Name Freq PRN Reason Stop Dose Admin Hydrocodone Bitart/Acetaminophen 1 each 08/06/20 12:31 08/08/20 12:20 [place] 5/325 PO 1 each Q4H PRN Administration Pain, Moderate (4-6) Dextrose 50 ml 08/06/20 03:41 D50w (25gm) Syringe IV Q30MIN PRN Hypoglycemia Protocol Cefepime HCl 2 gm in 100 mls @ 200 mls/hr 08/05/20 23:45 08/08/20 07:10 Cefepime/Ns 2 Gm/100 Ml IV 08/10/20 14:29 200 mls/hr Q8HR [facility]AI Administration Protocol Vancomycin HCl 1 gm in 250 mls @ 167.007 mls/hr 08/06/20 20:00 08/08/20 08:17 Vancomycin/Ns 1 Gm/250 Ml IV 08/10/20 08:59 167.007 mls/hr Q18H [facility]AI Administration Insulin Human Lispro 0 unit 08/06/20 07:30 08/08/20 13:06 Humalog SUB-Q 4 unit ACHS [facility]AI Administration Protocol Nutrition/Malnutrition Assess - Dietary Evaluation Nutrition/Malnutrition Findings: Nutrition Notes Start: 08/06/20 14:25 Freq: Status: Active Protocol: Document 08/07/20 12:53 CW (Rec: 08/07/20 13:10 CW [email or web address]) Co-Sign 08/07/20 12:53 MK Nutrition Notes Need for Assessment generated from: Education Initial or Follow up Reassessment Current Diagnosis Diabetes,Hypertension,Heart Failure Other Pertinent Diagnosis Encephalopathy, Pneumonia, wound, asthma, hyperglycemia Current Diet Cardiac/Consistent CHO Labs/Tests reviewed Pertinent Medications reviewed Height 5 ft 5 in Weight 74.387 kg Usual Body Weight 89.81 kg [place] Body Weight (kg) 56.81 BMI 27.3 Weight change and time frame Weight loss of 21% over one year (94.347 kg on 07/16/19-) Weight Status Overweight Subjective/Other Information Consult for diet education. Pt reports UBW of 89.81kg and wt loss over an unknown time. Pt reports decreased appetite and eating <25% of meals today . Per RN, pt ate 100% breakfast and lunch yesterday. Pt is open to double protein portions for wound healing. Pt ONS preferences recorded. Pt received low sodium diet handout. Percent of energy/protein needs met: 43%/32% Burn Absent Trauma Absent GI Symptoms None Current % PO Poor (25-49%) Minimum of two criteria No physical signs of malnutrition #3 Nutrition Diagnosis Increased nutrient needs ( specify in comment below) Comments: protein Etiology wound healing As Evidenced by Signs and Symptoms L thigh, R leg, abd wounds #2 Nutrition Diagnosis Food and nutrition-related knowledge deficit Etiology DM and HTN As Evidenced by Signs and Symptoms Pt asks questions about low sodium diet #1 Nutrition Diagnosis Inadequate oral intake Etiology SOB and chest pain As Evidenced by Signs and Symptoms Pt consuming 25%-49% PO Is patient on ventilator? No Is Patient Ambulatory and/or Out of Bed No REE-([facility]-confined to bed) 1606.176 Calculation Used for Recommendations [facility] Additional Notes Protein needs: 1.25-1.5g/kg ( 92-111g/day) Fluid: 1ml/kcal Nutrition Intervention Change Diet Order: continue Add Supplement/Snack (indicate name/kcal Glucerna BID /protein ) Provides kCal: 440 Provides Protein (gm) 20 Teaching Recipient Patient Learning Readiness Good Teaching Methods Discussion,Handout Response to Teaching Verbalize understanding Education Handouts Provided AND Low Sodium AND DM Barriers to Learning No Barriers RD phone number provided No Patient aware of follow up options Yes Goal #1 Meet 80% protein and energy needs via PO/ONS Goal #2 Wound healing Goal #3 Wt gain/ maintence Anticipated Discharge Needs: Cardiac/ consistent CHO Follow-Up By: 08/09/20 Additional Comments FU intakes, wt
== END 2020-08-08 15:46 | disposition home or self-care (01) ==
LOC: ED 18:27 → 3A 23:20
PROVIDERS: ADMIT Internal Medicine Geriatric Medicine; ATTEND Internal Medicine
DX: J18.9 Pneumonia, unspecified organism (principal); Z20.828 Contact with and (suspected) exposure to other viral communicable diseases; E11.65 Type 2 diabetes mellitus with hyperglycemia; I11.0 Hypertensive heart disease with heart failure; I50.9 Heart failure, unspecified; J45.909 Unspecified asthma, uncomplicated; E78.5 Hyperlipidemia, unspecified; L97.819 Non-pressure chronic ulcer of other part of right lower leg with unspecified severity; L98.499 Non-pressure chronic ulcer of skin of other sites with unspecified severity; L97.129 Non-pressure chronic ulcer of left thigh with unspecified severity; Z86.711 Personal history of pulmonary embolism; Z79.01 Long term (current) use of anticoagulants; Z79.4 Long term (current) use of insulin; Z79.899 Other long term (current) drug therapy; Z88.1 Allergy status to other antibiotic agents; Z88.5 Allergy status to narcotic agent; Z88.6 Allergy status to analgesic agent; Z88.8 Allergy status to other drugs, medicaments and biological substances
CPT/HCPCS: 36415; 71045; 71275; 80048; 80202; 81001; 82728; 82947; 82962; 83615; 84145; 84484; 85025; 85379; 85610; 85730; 86140; 87040; 93005; 94640; 96365; 96366; 96367; 96368; 96375; 96376; 99285; G0378; J0692; J1100; J2270; J2405; J3370; J7040; Q9967; U0003; J1815